=== PATIENT | female | born 1975 ===

== ENCOUNTER 2020-03-03 12:45 | Outpatient (REF) | payer OTHER, SELFPAY | END 2020-03-03 12:46 | disposition home or self-care (01) | LOC: HO.WFDLDS 12:45 | PROVIDERS: Visit Provider Internal Medicine | DX: Z20.828 Contact with and (suspected) exposure to other viral communicable diseases (principal) | CPT/HCPCS: 87635 ==

== ENCOUNTER 2020-05-02 07:37 | Outpatient (REF) | payer OTHER, SELFPAY ==
[2020-05-02 09:40] LABS: SARS COV2 IgG Negative (Negative)
== END 2020-05-02 07:38 | disposition home or self-care (01) ==
LOC: HO.LAB 07:37
PROVIDERS: PCP Family Medicine; Visit Provider Family Medicine
DX: Z20.828 Contact with and (suspected) exposure to other viral communicable diseases (principal)
CPT/HCPCS: 86769

== ENCOUNTER 2020-05-29 09:51 | Outpatient (REF) | payer OTHER, SELFPAY ==
--- NOTE | 2020-05-29 09:59 | MM_ITS ---
EXAMINATION: MM DIAGNOSTIC DIGITAL BREAST TOMOSYNTHESIS, BILATERAL US DIAGNOSTIC ULTRASOUND BREAST, RIGHT CLINICAL INFORMATION: 45-year-old with pea-sized palpable finding noted upper outer quadrant mid depth. Pain. Due for yearly. Patient notes prior history benign left breast biopsy approximately 20 years ago. The lifetime risk of breast cancer based on the Tyrer-Cuzick Model is 11%. COMPARISON: Mammography: 09/18/2018, 09/06/2017, 07/25/2016 TECHNIQUE: Digital breast tomosynthesis is performed in both the craniocaudal and mediolateral oblique views along with computer-aided detection (CAD). Synthesized 2D images are generated from the tomosynthesis. Additional views are obtained: Left MLO, magnification left CC x2, magnification left ML, magnification right CC, magnification right LM. Technologist notes right LM is inadvertently labeled as ML. Ultrasound right breast is targeted to the area of clinical concern upper outer quadrant. Patient is able to point to the area of interest at time of imaging. Grayscale imaging and color Doppler are performed without and with harmonics. FINDINGS: Mammography: The breasts are heterogeneously dense, which may obscure small masses (ACR BI-RADS breast composition Category c). Neither breast shows interval mass or architectural abnormality. There is no mammographic correlate for patient's palpable concern upper outer right breast. The axilla and skin contours are unremarkable. Additional magnification views right breast demonstrate new numerous grouped calcifications upper inner quadrant mid depth, over 10 in number. Stereotactic sampling is recommended. Additional magnification views left breast demonstrate new round calcifications retroareolar and lower inner breast, similar in appearance and round, grouped at least 8 in number representing change from prior studies. Stereotactic sampling 1 location is recommended. If benign remaining calcifications on left may be followed with mammography. Ultrasound: Targeted right breast ultrasound demonstrates no cystic or solid mass or focal duct ectasia or architectural abnormality. No skin thickening or edema tracking in soft tissue planes. Management: Results are discussed with the patient at time of visit. Bilateral stereotactic biopsy for calcifications is recommended. There is no mammographic or ultrasound correlate for patient's palpable concern upper outer right breast. Palpable area should be managed based on the clinical impression. If clinically indicated, further evaluation may be considered with surgical consult. Decision to proceed with biopsy of palpable area should be based on clinical grounds and degree of clinical concern. Results and recommendation called to medical assistant cardiology (Maggy) for Dr. Acosta on 05/29/2020. MM/MM tomosynthesis diagnostic BI IMPRESSION: 1. Right: New grouped calcifications upper inner quadrant. 2. Left: New/increased calcifications lower inner quadrant. 3. No imaging correlate for palpable concern upper outer right breast. ASSESSMENT: BI-RADS 4: Suspicious RECOMMENDATION: 1. Bilateral stereotactic biopsy, right upper inner quadrant and left lower inner quadrant. 2. Palpable area should be managed based on the clinical impression. If clinically indicated, further evaluation may be considered with surgical consult. Decision to proceed with biopsy of palpable area should be based on clinical grounds and degree of clinical concern. This patient's information was entered into a reminder system with a target due date for their next mammogram.
== END 2020-05-29 09:52 | disposition home or self-care (01) ==
LOC: HO.MAMMO 09:51
PROVIDERS: Visit Provider Family Medicine
DX: N64.4 Mastodynia (principal); N63.0 Unspecified lump in unspecified breast
CPT/HCPCS: 76642; 77062; 77066

== ENCOUNTER 2020-06-07 09:52 | Outpatient (REF) | payer OTHER, SELFPAY ==
--- NOTE | 2020-06-07 09:57 | MM_ITS ---
EXAMINATION: STEREOTACTIC TOMOSYNTHESIS-GUIDED VACUUM-ASSISTED BREAST BIOPSY, RIGHT SPECIMEN RADIOGRAPH, RIGHT POST PROCEDURE DIGITAL MAMMOGRAM, RIGHT CLINICAL INFORMATION: Indeterminate grouping of calcifications superior inner aspect of the right breast.. COMPARISON: May 29, 2020 and September 06, 2017. TECHNIQUE/PROCEDURE: Informed consent was obtained from the patient after discussion of the benefits, risks, and alternatives to biopsy today. Patient appeared to understand. Gave opportunity for questions. Patient signed consent form. BIOPSY TABLE: [employer] Affirm Prone Biopsy System. LESION: Grouping of calcifications superior medial aspect of the right breast.. LOCAL ANESTHESIA: 10 mL 1% lidocaine; 10 mL 1% lidocaine with epinephrine. DERMATOTOMY: Single skin tessie dermatotomy performed. NEEDLE: LIQUITY Eviva 9-gauge vacuum assisted core biopsy device. APPROACH: Superior. TARGETING: Digital breast tomosynthesis used for targeting. CORES: 12. CLIP: LIQUITY SecurMark Barrel-shaped marker. SPECIMEN RADIOGRAPH: Specimen radiograph is taken in separate room using digital mammography. The index calcifications are in the excised cores. POST PROCEDURE UNILATERAL DIGITAL MAMMOGRAM: The post biopsy mammogram is performed in separate room using separate digital mammography equipment from the biopsy procedure. 2 views are obtained. The breasts are heterogeneously dense, which may obscure small masses (breast composition category: c). The clip marker is in position. The calcifications are markedly decreased at the biopsy site. No gross hematoma. The patient tolerated the procedure well. No immediate complications. Home instructions reviewed with the patient. Final pathology results are pending. MM/MM stereotactic biopsy RT IMPRESSION: 1. Digital tomosynthesis-guided core biopsy right breast with clip placement. 2. Specimen radiograph taken and post procedure mammogram. There is satisfactory positioning of the biopsy clip. 3. Final pathology results pending. An addendum report will be issued.
--- NOTE | 2020-06-07 09:57 | MM_ITS ---
EXAMINATION: STEREOTACTIC TOMOSYNTHESIS-GUIDED VACUUM-ASSISTED BREAST BIOPSY, LEFT SPECIMEN RADIOGRAPH, LEFT POST PROCEDURE DIGITAL MAMMOGRAM, LEFT CLINICAL INFORMATION: Indeterminate left breast calcifications. COMPARISON: May 29, 2020 and studies dating back to March 11, 2012. TECHNIQUE/PROCEDURE: Informed consent was obtained from the patient after discussion of the benefits, risks, and alternatives to biopsy today. Patient appeared to understand. Gave opportunity for questions. Patient signed consent form. BIOPSY TABLE: [employer] Affirm Prone Biopsy System. LESION: Indeterminate calcifications. LOCAL ANESTHESIA: 10 mL 1% lidocaine; 20 mL 1% lidocaine with epinephrine. DERMATOTOMY: Single skin tessie dermatotomy performed. NEEDLE: [employer] Eviva 9-gauge vacuum assisted core biopsy device. APPROACH: Medial. TARGETIN-D. CORES: 12. CLIP: [employer] SecurMark Cylinder-shaped marker. SPECIMEN RADIOGRAPH: Specimen radiograph is taken in separate room using digital mammography. The index calcifications are in the excised cores. POST PROCEDURE UNILATERAL DIGITAL MAMMOGRAM: The post biopsy mammogram is performed in separate room using separate digital mammography equipment from the biopsy procedure. Craniocaudal and 90 degree mediolateral views are obtained. The breasts are heterogeneously dense, which may obscure small masses (breast composition category: c). The clip marker is in position. The calcifications are markedly decreased at the biopsy site. No gross hematoma. The patient tolerated the procedure well. No immediate complications. Home instructions reviewed with the patient. Final pathology results are pending. MM/MM stereotactic biopsy LT IMPRESSION: 1. Digital tomosynthesis-guided core biopsy left breast with clip placement. 2. Specimen radiograph taken and post procedure mammogram. There is satisfactory positioning of the biopsy clip. 3. Final pathology results pending. An addendum report will be issued.
== END 2020-06-07 09:53 | disposition home or self-care (01) ==
LOC: HO.MAMMO 09:52
PROVIDERS: Visit Provider Surgery
DX: R92.8 Other abnormal and inconclusive findings on diagnostic imaging of breast (principal); N63.10 Unspecified lump in the right breast, unspecified quadrant; R92.1 Mammographic calcification found on diagnostic imaging of breast; Z79.899 Other long term (current) drug therapy
CPT/HCPCS: 19081; 88305; 88341; 88342; 88360; A4648

== ENCOUNTER → 2020-06-14 13:20 | Outpatient (BNVA) | payer OTHER, SELFPAY | PROVIDERS: PCP Family Medicine; Visit Provider Surgery | DX: R92.8 Other abnormal and inconclusive findings on diagnostic imaging of breast (principal) ==

== ENCOUNTER 2021-01-16 10:14 | Outpatient (REF) | payer OTHER, SELFPAY ==
[2021-01-16 13:36] LABS: MANUAL DIFF FLAG NO
[2021-01-16 13:46] LABS: Basophils Percent Auto 0.6 % (0-2); Eosinophils Absolute Auto 0.1 X10*3/uL (0.0-0.4); Eosinophils Percent Auto 1.5 % (0-4); Hematocrit 37.7 % (37-47); Imm Gran Abs Auto 0.01 X10*3/uL (0.00-0.03); Imm Gran Pct Auto 0.2 % (0.0-0.4); Lymphocytes Percent Auto 21.1 % (20-40); Mean Corpuscular HGB Conc 31.8 g/dl (31.0-35.0); Mean Corpuscular Hemoglobin 29.2 pg (27.0-33.0); Mean Corpuscular Volume 91.7 fL (80-98); Mean Platelet Volume 11.7 fL (9.4-12.3); Monocytes Absolute Auto 0.6 X10*3/uL (0.1-1.2); Monocytes Percent Auto 12.8 % (2-11); Neutrophils Percent Auto 63.8 % (45-73); Platelet Count 211 X10*3/uL (160-400); Red Blood Count 4.11 X10*6/uL (4.20-5.50); Red Cell Distribution Width 13.7 % (11.0-16.0); White Blood Count 4.8 X10*3/uL (4.8-10.8)
[2021-01-16 14:26] LABS: Alanine Aminotransferase 26 U/L (0-31); Albumin Level 4.4 g/dL (3.5-5.0); Alkaline Phosphatase 90 U/L (39-117); Anion Gap 11 (12-20); Aspartate Amino Transferase 24 U/L (5-31); Bilirubin Total 0.5 mg/dL (0.0-1.0); Blood Urea Nitrogen 12 mg/dL (9-16); Calcium 9.4 mg/dL (8.4-10.2); Carbon Dioxide 27 mmol/L (22-29); Chloride 106 mmol/L (96-108); Estimated Glomerular Filt Rate > 60; Glucose Fasting 76 mg/dL (60-99); Sodium 140 mmol/L (135-145); Total Protein 6.9 g/dL (6.5-8.0)
[2021-01-16 14:36] LABS: TSH reflex Free T4 0.71 uIU/mL (0.32-4.0)
== END 2021-01-16 10:15 | disposition home or self-care (01) ==
LOC: HO.WFDLDS 10:14
PROVIDERS: Visit Provider Family Medicine
DX: Z00.00 Encounter for general adult medical examination without abnormal findings (principal); R55 Syncope and collapse
CPT/HCPCS: 36415; 80053; 84443; 85025

== ENCOUNTER 2021-02-07 14:04 | Outpatient (REF) | payer OTHER, SELFPAY | END 2021-02-07 14:05 | disposition home or self-care (01) | LOC: HO.LAB 14:04 | PROVIDERS: PCP Family Medicine; Visit Provider Internal Medicine | DX: Z20.822 Contact with and (suspected) exposure to COVID-19 (principal) | CPT/HCPCS: C9803; U0003; U0005 ==

== ENCOUNTER 2021-04-11 15:37 | Outpatient (REF) | payer OTHER, SELFPAY ==
--- NOTE | ~2021-04-11 | XR_ITS ---
EXAMINATION: XR LUMBOSACRAL SPINE CLINICAL INFORMATION: Back pain COMPARISON: Previous lumbar spine x-ray March 2016 and MRI December 2016 TECHNIQUE: Three views of the lumbosacral spine. FINDINGS: Bone alignment is normal. No fracture or dislocation is seen. Disc spaces are normal. There is facet arthritis at L5-S1. Paraspinal soft tissues are unremarkable. XR/XR lumbar spine 2-3V IMPRESSION: Mild facet arthritis L5-S1.
== END 2021-04-11 15:38 | disposition home or self-care (01) ==
LOC: HO.XRAY 15:37
PROVIDERS: PCP Family Medicine; Visit Provider Family Medicine
DX: M54.9 Dorsalgia, unspecified (principal)
CPT/HCPCS: 72100

== ENCOUNTER 2021-05-14 13:38 | Outpatient (REF) | payer OTHER, SELFPAY ==
[2021-05-14 20:05] LABS: Influenza A PCR NEGATIVE (Negative); Influenza B PCR NEGATIVE (Negative); Resp Syncy Virus RNA Qual PCR NEGATIVE (Negative); SARS COV2 PCR INHOUSE NEGATIVE (Negative)
== END 2021-05-14 13:39 | disposition home or self-care (01) ==
LOC: HO.LAB 13:38
PROVIDERS: Visit Provider Family Medicine
DX: Z20.822 Contact with and (suspected) exposure to COVID-19 (principal); B34.9 Viral infection, unspecified
CPT/HCPCS: 0241U

== ENCOUNTER 2021-05-16 08:03 | Outpatient (REF) | payer OTHER, SELFPAY | END 2021-05-16 08:04 | disposition home or self-care (01) | LOC: HO.HMGCLDS 08:03 | PROVIDERS: Visit Provider Internal Medicine | DX: Z20.822 Contact with and (suspected) exposure to COVID-19 (principal) | CPT/HCPCS: C9803; U0003; U0005 ==

== ENCOUNTER 2021-06-22 06:26 | Outpatient (REF) | payer OTHER, SELFPAY ==
--- NOTE | ~2021-06-22 | XR_ITS ---
EXAMINATION: XR CHEST CLINICAL INFORMATION: Chest pain. COMPARISON: Prior chest June 2017. TECHNIQUE: 2 views of the chest were obtained. FINDINGS: No acute significant abnormality is noted involving the heart, lungs, mediastinum, bony thorax or soft tissues. Surgical clips overlie the anterior chest wall on the right and left which is new compared to prior. XR/XR chest 2V IMPRESSION: No acute disease.
[2021-06-22 06:39] LABS: MANUAL DIFF FLAG NO
[2021-06-22 07:33] LABS: Basophils Percent Auto 0.5 % (0-2); Eosinophils Absolute Auto 0.1 X10*3/uL (0.0-0.4); Eosinophils Percent Auto 1.8 % (0-4); Hematocrit 38.1 % (37.0-47.0); Hemoglobin 12.4 g/dl (12.0-16.0); Imm Gran Abs Auto 0.01 X10*3/uL (0.00-0.03); Imm Gran Pct Auto 0.3 % (0.0-0.4); Lymphocytes Absolute Auto 1.1 X10*3/uL (1.2-4.9); Lymphocytes Percent Auto 28.6 % (20-40); Mean Corpuscular HGB Conc 32.5 g/dl (31.0-35.0); Mean Corpuscular Hemoglobin 29.7 pg (27.0-33.0); Mean Corpuscular Volume 91.1 fL (80.0-98.0); Mean Platelet Volume 11.2 fL (9.4-12.3); Monocytes Absolute Auto 0.5 X10*3/uL (0.1-1.2); Neutrophils Absolute Auto 2.1 x10*3/uL (2.0-8.3); Neutrophils Percent Auto 55.8 % (45-73); Platelet Count 212 X10*3/uL (160-400); Red Blood Count 4.18 X10*6/uL (4.20-5.50); Red Cell Distribution Width 13.8 % (11.0-16.0); White Blood Count 3.8 X10*3/uL (4.8-10.8)
[2021-06-22 07:59] LABS: Anion Gap 12 (12-20); Blood Urea Nitrogen 19 mg/dL (9-16); Calcium 9.6 mg/dL (8.4-10.2); Carbon Dioxide 27 mmol/L (22-29); Chloride 106 mmol/L (96-108); Estimated Glomerular Filt Rate > 60; Glucose Random 84 mg/dL (60-115); Potassium 4.2 mmol/L (3.3-5.1); Sodium 141 mmol/L (135-145)
== END 2021-06-22 06:27 | disposition home or self-care (01) ==
LOC: HO.LAB 06:26
PROVIDERS: PCP Family Medicine; Visit Provider Family Medicine
DX: Z00.00 Encounter for general adult medical examination without abnormal findings (principal); R07.9 Chest pain, unspecified; R42 Dizziness and giddiness
CPT/HCPCS: 36415; 71046; 80048; 85025

== ENCOUNTER 2022-01-08 06:25 | Outpatient (REF) | payer OTHER, SELFPAY ==
[2022-01-08 07:58] LABS: Alkaline Phosphatase 104 U/L (39-117); Amylase 74 U/L (28-100); Estimated Glomerular Filt Rate > 60; Lipase 48 U/L (8-78)
== END 2022-01-08 06:26 | disposition home or self-care (01) ==
LOC: HO.LAB 06:25
PROVIDERS: PCP Family Medicine; Visit Provider Nurse Practitioner Family
DX: R10.11 Right upper quadrant pain (principal)
CPT/HCPCS: 36415; 82150; 82565; 83690; 84075

== ENCOUNTER 2022-01-08 07:29 | Outpatient (REF) | payer OTHER, SELFPAY | END 2022-01-08 07:30 | disposition home or self-care (01) | LOC: HO.LNP 07:29 | PROVIDERS: Visit Provider Nurse Practitioner Family | DX: R10.11 Right upper quadrant pain (principal) | CPT/HCPCS: 87338 ==

== ENCOUNTER 2022-01-18 14:54 | Outpatient (REF) | payer OTHER, SELFPAY ==
--- NOTE | ~2022-01-18 | CT_ITS ---
EXAMINATION: CT ABDOMEN WITH CONTRAST CLINICAL INFORMATION: Right upper quadrant pain. COMPARISON: September 05, 2009 and March 10, 2008 TECHNIQUE: Contiguous axial thin section helical images of the abdomen were performed following the administration of oral contrast and 85 mL of Omnipaque 350 intravenous contrast. The data set was reformatted in the coronal and sagittal planes and reviewed on an independent workstation. This CT examination was performed using dose optimization techniques as appropriate, variously including the following: *Automated exposure control *Adjustment of mA and/or kV according to patient size (this includes techniques or standardized protocols for targeted exams where dose is matched to indication/reason for exam; i.e. extremities or head) *Use of iterative reconstruction technique DLP: 199 mGy-cm FINDINGS: LUNG BASES: The lung bases appear clear, with no evidence of inflammation or nodules. LIVER, GALLBLADDER, AND BILIARY TREE: No significant change in benign, subcentimeter elements 2 and 3 hepatic cysts or meningioma (images 14 and 22, series 3). The liver otherwise appears unremarkable in size, shape, and attenuation. No focal hepatic lesion or biliary ductal dilatation is appreciated. Unremarkable appearance of the gallbladder. PANCREAS: Unremarkable SPLEEN: Unremarkable ADRENAL GLANDS: Unremarkable KIDNEYS AND URETERS: The kidneys appear unremarkable in size, shape, and attenuation. 4 mm or less, nonobstructing, bilateral renal collecting system stones (image 30, series 3 on the right; image 25 on the left). GASTROINTESTINAL TRACT: The visualized small and large bowel appear unremarkable. ABDOMINAL WALL: No significant hernia is appreciated. LYMPH NODES: No evidence of adenopathy by size criteria. VASCULAR: Unremarkable OSSEOUS STRUCTURES: Unremarkable CT/CT abdomen w IV con IMPRESSION: No acute finding.
[2022-01-18] MEDS: iohexoL 350 MG/ML 100 ML INFUS..BTL IV (15:54)
== END 2022-01-18 14:55 | disposition home or self-care (01) ==
LOC: HO.CT 14:54
PROVIDERS: PCP Family Medicine; Visit Provider Nurse Practitioner Family
DX: R10.11 Right upper quadrant pain (principal)
CPT/HCPCS: 74160; Q9967

== ENCOUNTER 2022-02-24 20:14 | Emergency (ER) | payer OTHER, SELFPAY ==
--- NOTE | ~2022-02-24 | CT_ITS ---
EXAMINATION: CT ABDOMEN AND PELVIS WITHOUT CONTRAST CLINICAL INFORMATION: Right flank pain COMPARISON: 01/18/2022 TECHNIQUE: Multidetector volumetric imaging was performed from the superior aspect of the liver through the pubic symphysis. Sagittal and coronal reformatted images were obtained on the technologist's workstation. This CT examination was performed using dose optimization techniques as appropriate, variously including the following: *Automated exposure control *Adjustment of mA and/or kV according to patient size (this includes techniques or standardized protocols for targeted exams where dose is matched to indication/reason for exam; i.e. extremities or head) *Use of iterative reconstruction technique DLP: 524 mGy-cm FINDINGS: LUNG BASES: The visualized lung bases are unremarkable. LIVER, GALLBLADDER, AND BILIARY TREE: The liver is normal in size, shape, and attenuation. No focal hepatic lesion or biliary ductal dilatation is identified. The gallbladder is unremarkable with no evidence of radiopaque gallstones, gallbladder wall thickening, or obvious pericholecystic inflammatory changes. PANCREAS: Unremarkable. SPLEEN: Unremarkable. ADRENAL GLANDS: Unremarkable. KIDNEYS AND URETERS: No hydronephrosis or obstructing calculus bilaterally. There are multiple scattered bilateral renal calculi measuring up to 3 mm. BLADDER: Nearly empty and not adequately evaluated. GASTROINTESTINAL TRACT: No evidence of bowel obstruction or significant wall thickening. The appendix is unremarkable. No free fluid or free air is seen. ABDOMINAL WALL: No significant hernia is appreciated. LYMPH NODES: Normal. VASCULAR: Unremarkable. PELVIC VISCERA: Status post hysterectomy. OSSEOUS STRUCTURES: Unremarkable. CT/CT abdomen pelvis wo IV con IMPRESSION: No hydronephrosis or obstructing calculus. Multiple scattered bilateral renal calculi.
[2022-02-24 21:16] VITALS: BP 135/74; PULSE 84; RESP 14; TEMP 36.4; O2SAT 95; BMI 25.2
[2022-02-24 22:17] LABS: MANUAL DIFF FLAG NO
[2022-02-24 22:21] LABS: Basophils Percent Auto 0.6 % (0-2); Eosinophils Absolute Auto 0.1 X10*3/uL (0.0-0.4); Eosinophils Percent Auto 2.3 % (0-4); Hematocrit 36.6 % (37.0-47.0); Hemoglobin 11.9 g/dl (12.0-16.0); Imm Gran Abs Auto 0.02 X10*3/uL (0.00-0.03); Imm Gran Pct Auto 0.4 % (0.0-0.4); Lymphocytes Absolute Auto 1.7 X10*3/uL (1.2-4.9); Lymphocytes Percent Auto 32.2 % (20-40); Mean Corpuscular HGB Conc 32.5 g/dl (31.0-35.0); Mean Corpuscular Hemoglobin 29.2 pg (27.0-33.0); Mean Corpuscular Volume 89.9 fL (80.0-98.0); Mean Platelet Volume 9.7 fL (9.4-12.3); Monocytes Absolute Auto 0.7 X10*3/uL (0.1-1.2); Monocytes Percent Auto 13.9 % (2-11); Neutrophils Absolute Auto 2.7 x10*3/uL (2.0-8.3); Neutrophils Percent Auto 50.6 % (45-73); Platelet Count 187 X10*3/uL (160-400); Red Blood Count 4.07 X10*6/uL (4.20-5.50); Red Cell Distribution Width 13.5 % (11.0-16.0); White Blood Count 5.3 X10*3/uL (4.8-10.8)
[2022-02-24 22:39] LABS: Alanine Aminotransferase 22 U/L (0-31); Albumin Level 4.3 g/dL (3.5-5.0); Alkaline Phosphatase 118 U/L (39-117); Anion Gap 14 (12-20); Aspartate Amino Transferase 20 U/L (5-31); Bilirubin Total 0.2 mg/dL (0.0-1.0); Blood Urea Nitrogen 18 mg/dL (9-16); Calcium 9.4 mg/dL (8.4-10.2); Carbon Dioxide 24 mmol/L (22-29); Chloride 108 mmol/L (96-108); Creatinine Clr Calc Pharmacy 93.2; Estimated Glomerular Filt Rate > 60; Glucose Random 82 mg/dL (60-115); Lipase 50 U/L (8-78); Potassium 3.8 mmol/L (3.3-5.1); Sodium 142 mmol/L (135-145); Total Protein 6.9 g/dL (6.5-8.0)
[2022-02-25 02:51] VITALS: BP 133/82; PULSE 77; RESP 22; O2SAT 100
--- OUTSIDE RECORDS SUMMARY | 2022-02-25 02:54 | XMS_ITS ---
:1975 Author Name DaveBrody quick Care Team Providers Name Role Phone Brody Acosta Unavailable Unavailable PROBLEMS Type Condition ICD9-CM Code [id number] Code Onset Condition SNO MED Code Dates Status Problem Hallux valgus M20.11 Active 751252 01 (acquired), right foot Problem Hallux valgus M20.12 Active 787092 01 (acquired), left foot Problem MS (multiple G35 Active 5801634 7 sclerosis) ALLERGIES Substance Reaction Event Type Date Status Latex rash Non Drug Allergy Jan, Active Tramadol HCl vomiting Drug Allergy Jan, Active ENCOUNTERS [facility] Date [facility], [address], 2021 [place] [address] [facility] [address], [place] [address] [facility] [address] [facility] [address], [place] [address] [facility] [address] [address] [address], [place] [address] [facility], [place] [address] [facility] [address] May, [place] [address] Jan, [place] lux valgus [place], [place] (acquired), [place]f [place] [address] M20.12 ; Hallux valgus (acquired), righ t foot M20.11 ; Pain in left foot M79.672 ; P ain in right foot M79.6 71 ; Ganglion, left a nkle and foot M67.472 and MS (multiple sclerosis) G35 IMMUNIZATIONS No Known Immunizations SOCIAL HISTORY Qualifiers Date Never Smoker REASON FOR REFERRAL FUNCTIONAL STATUS PLAN OF CARE Activity Details Pending Test X ray : Foot, left 3V Pending Test X ray : Foot, right 3V Future/Pending Procedure - Ganglion Cyst Injecti on/Aspiration VITAL SIGNS Height 55 in 2019-02-15 Weight 140 lbs 2019-02-15 BMI 32.54 kg/m2 2019-02-15 Blood pressure systolic 144 mm Hg 2019-02-15 Blood pressure diastolic 87 mm Hg 2019-02-15 MEDICATIONS Medication Instructions Dosage Frequency Start End Duration Statu s Date Date predniSONE 20 Orally Once a 1 tablet 24h 30 day(s) N ot-Takin MG day g Ibuprofen 800 Orally Three 1 tablet 8h Acti ve MG times a day with food or milk as needed PROCEDURES Procedure Date Ordered Result Body Site ASPIRATE/INJ GANGLION CYST Feb 15, 2019 INJ BETAMETHSN ACTAT&SOD PHOSPH-3MG Feb 15, 2019 X-RAY EXAM OF RIGHT FOOT 3V Feb 15, 2019 X-RAY EXAM OF LEFT FOOT 3V Feb 15, 2019 RESULTS No Results REASON FOR VISIT Insurance Providers [facility] Member Patient Patient Patient Patient Patient Subscriber Subscriber Subscriber Group Insurance Plan Plan Plan Plan ID Relationship Address Phone Name Date of ID Name Date of No Type Insurance Insurance Insurance Coverage to Subscriber Address Phone Name Dates [facility] [phone] [facility] [place] [id number] [place] [address] [facility] [address] MEDICAL (GENERAL) HISTORY Type Description Date Medical History Headaches/Migraines Medical History Lyme disease Medical History Multiple sclerosis Medical History Numbness Medical History Chicken pox Medical History Optic neuritis Surgical History tubal ligation Surgical History hysterectomy
--- OUTSIDE RECORDS SUMMARY | 2022-02-25 02:54 | XMS_ITS | Continuity of Care Document ---
:1975 Author Organization [facility] Address [address] [place] [address], 3rd Floor, [address] [place] [id number]- Care Team Providers Name Role Phone Dave LARA, Brody Maldonado Primary Care Physician [place] [facility] [place]20 [facility] [address] [place] [address], 3rd [facility], [address] [place] [address]- Allergies, Adverse Reactions, Alerts Substance Reaction Severity Status [place] Nausea, Abdominal discomfort Act tiffanie Latex rash Active red dots traMADol Dizziness Active N+V - Nausea and vomiting Immunizations Given and Recorded Vaccine Date Status Refusal Reason pneumococcal 23-valent vaccine 12/19/13 Given Medications gabapentin 100 mg oral capsule 100 mg, 1, capsule, By Mouth, 2 times a day, # 60 capsule, Refills 2, Tot. Refills 2, Maintenance, 12/31/19 14:18:00 EDT, Route to Pharmacy Electronically, [facility]/pharmacy #[id number], 165, cm, 07/29/19 8:20:00EDT, Height, 66.8, kg, 03/16/19 16:36:00 EDT, Dry... Start Date: 12/31/19 Status: Orderedibuprofen 600 mg oral tablet See Instructions, PRN, required and as before, Refills 0, Maintenance, Pain , Mild, 08/16/17 11:36:53 EDT, Instructions Replace Required Details Start Date: 08/16/17 Status: Orderedmeclizine 12.5 mg oral tablet 1 tablet = 12.5 mg, By Mouth, 3 times a day, PRN for dizziness, # 30 tablet, 1 Refills, Maintenance,01/19/20 10:27:00 EDT, Tablet, [facility]/pharmacy #[id number], 165, cm, 07/29/19 8:20:00 EDT, Height, 66.8, kg, 03/16/19 16:36:00 EDT, Dry Weight Start Date: 01/19/20 Status: OrderedOcrevus 600 mg, IV Infusion, Every 6 months, Maintenance, 03/25/20 8:09:00 EST Start Date: 03/25/20 Status: OrderedVitamin D 75374 iu oral capsule 50,000 International_Units, 1, capsule, By Mouth, Every week, # 4 capsule, Refills 5, Tot. Refills 5, Maintenance, 12/17/19 15:39:00 EDT, Route to Pharmacy Electronically, [facility]/pharmacy #[id number], 165, cm, 07/29/19 8:20:00 EDT, Height, 66.8, kg, 03/16/19 1... Start Date: 12/17/19 Status: Ordered Problem List Condition Effective Dates Status Health Status Informant Abdominal pain, epigastric(Confirmed) Active Abdominal pain, generalized(Confirmed) Active Change in stool habits(Confirmed) Active Colicky abdominal pain(Confirmed) Active Diagnostic colonoscopy(Confirmed) Active Diarrhea(Confirmed) Active History of kidney stones(Confirmed) Active Migraine(Confirmed) Active Multiple Sclerosis(Confirmed) Active Nausea(Confirmed) Active Optic Neuritis(Confirmed) Active Social History Social History Type Response Smoking Status Never smoker; Tobacco user i n household: No entered on: 12/15/13 Sex
--- OUTSIDE RECORDS SUMMARY | 2022-02-25 02:54 | XMS_ITS | Continuity of Care Document ---
:1975 Author Organization [facility] Address Unavailable , Care Team Providers Name Role Phone Dave LARA, Brody Maldonado Primary Care Physician [place] [facility] [place] Date(s): 02/21/21 - 03/23/21 [facility] Allergies, Adverse Reactions, Alerts Substance Reaction Severity Status [place] Nausea, Abdominal discomfort Act tiffanie Latex rash Active red dots traMADol Dizziness Active N+V - Nausea and vomiting Immunizations Given and Recorded Vaccine Date Status Refusal Reason pneumococcal 23-valent vaccine 12/19/13 Given Medications Acetaminophen 0 Refills, Maintenance, 07/31/20 15:21:00 EDT, Partial fill upon patient request if the prescriptionis for a schedule II opioid drug. Start Date: 07/31/20 Status: Orderedibuprofen 600 mg oral tablet See Instructions, PRN, required and as before, Refills 0, Maintenance, Pain , Mild, 08/16/17 11:36:53 EDT, Instructions Replace Required Details Start Date: 08/16/17 Status: Orderedtamoxifen 10 mg oral tablet See Instructions, 1/2tab in AM [id number];then1/2tabBID x 7 d;then 1 tab in AM and!/2 in [id number]; then 1 tab BID going forward, # 180 tablet, Refills 3, Tot. Refills 3, Maintenance, 08/23/20 10:20:00EDT, Instructions Replace Required Details, Route... Start Date: 08/23/20 Status: OrderedVitamin D 34224 iu oral capsule 50,000 International_[employer]its, 1, capsule, By Mouth, Every week, # 4 capsule, Refills 5, Tot. Refills 5, Maintenance, 12/17/19 15:39:00 EDT, Route to Pharmacy Electronically, [facility]/pharmacy #[id number], 165, cm, 07/29/19 8:20:00 EDT, Height, 66.8, kg, 03/16/19 1... Start Date: 12/17/19 Status: Ordered Problem List Condition Effective Dates Status Health Status Informant Abdominal pain, epigastric(Confirmed) Active Abdominal pain, generalized(Confirmed) Active Change in stool habits(Confirmed) Active Colicky abdominal pain(Confirmed) Active Diagnostic colonoscopy(Confirmed) Active Diarrhea(Confirmed) Active History of kidney stones(Confirmed) Active Personal history of breast Active cancer(Confirmed) S/P partial mastectomy(Confirmed) Active Migraine(Confirmed) Active Multiple Sclerosis(Confirmed) Active Nausea(Confirmed) Active Postoperative breast Active asymmetry(Confirmed) Optic Neuritis(Confirmed) Active Social History Social History Type Response Smoking Status Never smoker; Tobacco user i n household: No entered on: 12/15/13 Sex
--- OUTSIDE RECORDS SUMMARY | 2022-02-25 02:54 | XMS_ITS | Continuity of Care Document ---
:1975 Author Organization [facility] Address [address] [place] [address], 3rd Floor, [address] [place] [id number]- Care Team Providers Name Role Phone Gemma Arrieta Primary Care Physician Encounter [facility] [place] Date(s): 12/15/19 - 01/14/20 [facility] [address] [place] [address], 3rd Floor, [address] [place] [id number]- [facility] Allergies, Adverse Reactions, Alerts Substance Reaction Severity Status [place] Nausea, Abdominal discomfort Act tiffanie Latex rash [...] 14:18:00 EDT, Route to Pharmacy Electronically, [facility]/pharmacy #[id number], 165, cm, 07/29/19 8:20:00EDT, Height, 66.8, kg, 03/16/19 16:36:00 EDT, Dry... Start Date: 12/31/19 Status: Orderedibuprofen 600 mg oral tablet See Instructions, PRN, required and as before, Refills 0, Maintenance, Pain , Mild, 08/16/17 11:36:53 EDT, Instructions Replace Required Details Start Date: 08/16/17 Status: OrderedVitamin D 68160 iu oral capsule 50,000 International_Units, 1, capsule, By Mouth, Every week, # 4 capsule, Refills 5, Tot. Refills 5, Maintenance, 12/17/19 15:39:00 EDT, Route to Pharmacy Electronically, [facility]/pharmacy #[id number], 165, cm, 07/29/19 8:20:00 EDT, Height, [...]
--- OUTSIDE RECORDS SUMMARY | 2022-02-25 02:54 | XMS_ITS | Continuity of Care Document ---
:1975 Author Organization [facility] Address [address] [place] [address], 3[address] Floor, [address] [place] [id number]- Care Team Providers Name Role Phone Gemma Arrieta Primary Care Physician [place] [facility] [place]20 [facility] [address] [facility], 3rd Floor, [address] [place] [address]- [facility] Allergies, Adverse Reactions, Alerts Substance Reaction Severity Status [place] Nausea, Abdominal discomfort Act tiffanie Latex rash [...] 12/31/19 14:18:00 EDT, Route to Pharmacy Electronically, [facility]/pharmacy #[id number], 165, cm, 07/29/19 8:20:00EDT, Height, 66.8, kg, [...] tablet, 1 Refills, Maintenance,01/19/20 10:27:00 EDT, Tablet, [facility]/pharmacy #[id number], 165, cm, 07/29/19 8:20:00 EDT, Height, 66.8, kg, 03/16/19 16:36:00 EDT, Dry Weight Start Date: 01/19/20 Status: OrderedVitamin D 48332 iu oral capsule 50,000 International_[employer]its, 1, capsule, By Mouth, Every week, # 4 capsule, Refills 5, Tot. Refills 5, Maintenance, 12/17/19 15:39:00 EDT, Route to Pharmacy Electronically, [facility]/pharmacy #[id number], 165, cm, 07/29/19 8:20:00 EDT, [...]
--- OUTSIDE RECORDS SUMMARY | 2022-02-25 02:54 | XMS_ITS | Continuity of Care Document ---
:1975 Author Organization [facility] Address [address] [place] [address], 3rd Floor, [address] [place] [address]- Care Team Providers Name Role Phone Dave LARA, Brody Maldonado Primary Care Physician Encounter [facility] Date(s): 05/24/20 - 06/23/20 [facility] [address] [place] [address], 3rd [facility], [address] [place] [id number] Allergies, Adverse Reactions, Alerts Substance Reaction Severity Status [place] Nausea, Abdominal discomfort Act tiffanie Latex rash [...] 12/31/19 14:18:00 EDT, Route to Pharmacy Electronically, [facility]/pharmacy #[id number], 165, cm, 07/29/19 8:20:00EDT, Height, 66.8, kg, [...] tablet, 1 Refills, Maintenance,01/19/20 10:27:00 EDT, Tablet, [facility]/pharmacy #[id number], 165, cm, 07/29/19 8:20:00 EDT, Height, 66.8, kg, 03/16/19 16:36:00 EDT, Dry Weight Start Date: 01/19/20 Status: OrderedOcrevus 600 mg, IV Infusion, Every 6 months, Maintenance, 03/25/20 8:09:00 EST Start Date: 03/25/20 Status: OrderedVitamin D 87540 iu oral capsule 50,000 International_Units, 1, capsule, By Mouth, Every week, # 4 capsule, Refills 5, Tot. Refills 5, Maintenance, 12/17/19 15:39:00 EDT, Route to Pharmacy Electronically, [facility]/pharmacy #[id number], 165, cm, 07/29/19 8:20:00 EDT, [...]
--- OUTSIDE RECORDS SUMMARY | 2022-02-25 02:54 | XMS_ITS | Continuity of Care Document ---
:1975 Author Organization [facility] Address [address] [place] [address]- Care Team Providers Name Role Phone Genesis Shepherd MD, V Primary Care Physician Encounter [facility] Date(s): 02/06/22 - 02/13/22 [facility] [address] [place], [place] [address] Encounter Diagnosis Abdominal pain, epigastric (Discharge Diagnosis) - 02/06/22 History of Helicobacter infection (Discharge Diagnosis) - 02/06/22 Attending Physician: Genesis Shepherd MD, V Allergies, Adverse Reactions, Alerts Substance Reaction Severity Status [place] Nausea, Abdominal discomfort Act tiffanie traMADol Dizziness Active N+V - Nausea and vomiting Latex rash Active red dots Immunizations Given and Recorded Vaccine Date Status [...] Orderedtamoxifen 10 mg oral tablet See Instructions, TAKE INSTRUCTED BY YOUR PRESCRIBER, # 180 tablet, Refills 3, Tot. Refills 3, 10/05/21 10:22:00 EDT, Instructions Replace Required Details, Route to Pharmacy Electronically, [facility], 165.1, cm, 07/03/21 13:48:... Start Date: 10/05/21 Status: OrderedVitamin D 07529 iu oral capsule 50,000 International_Units, 1, capsule, By Mouth, Every week, # 4 capsule, Refills 5, Tot. Refills 5, Maintenance, 12/17/19 15:39:00 EDT, Route to Pharmacy Electronically, [facility]/pharmacy #[id number], 165, cm, 07/29/19 8:20:00 EDT, Height, 66.8, kg, 03/16/19 1... Start Date: 12/17/19 Status: OrderedVumerity 231 mg oral delayed release capsule 2 capsule = 462 mg, By Mouth, 2 times a day, do not take with high fat meal, # 120 capsule, 5 Refills, Maintenance, 12/31/21 12:52:00 EDT, CR Capsule, [facility], Partial fill upon patient request if the prescription is for a schedule II opioid drug., 16... Start Date: 12/31/21 Status: Ordered Problem List Condition Confirmation Course Effective Dates Status Health I nformant Status Abdominal pain, Confirmed Active epigastric Abdominal pain, Confirmed Active generalized Change in stool Confirmed Active habits Colicky abdominal Confirmed Active pain Diagnostic Confirmed Active colonoscopy Diarrhea Confirmed Active History of Confirmed Active Helicobacter infection History of kidney Confirmed Active stones Personal history of Confirmed Active breast cancer S/P partial Confirmed Active mastectomy Migraine Confirmed Active Multiple Sclerosis Confirmed Active Nausea Confirmed Active Postoperative breast Confirmed Active asymmetry Optic Neuritis Confirmed Active Diagnosis Diagnosis Type Effective Dates Health Clinical Infor [facility] Status Service Abdominal pain, Discharge 02/06/22 epigastric Diagnosis History of Discharge 02/06/22 Helicobacter Diagnosis infection Vital Signs Most recent to oldest [Reference Range]: 1 Height 165 cm (02/06/22 1:05 PM) Weight 69 kg (02/06/22 1:05 PM) Body Mass Index [18.5-24.99 kg/m2] 25.34 kg/m2 *H* (02/06/22 1:05 PM) Weight Obtained Via Patient/family stated (02/06/22 1:05 PM) Social History Social History Type Response Smoking Status Never smoker; Tobacco user i n household: No entered on: 12/15/13 Sex Patient Care team information PersonnelName: Genesis Shepherd MD, V Address: Address: [address] [place] [address]
--- OUTSIDE RECORDS SUMMARY | 2022-02-25 02:55 | XMS_ITS | Continuity of Care Document ---
:1975 Author Organization [facility] Address [address] [place] [address], 3rd Floor, [address] [place] [address]- Care Team Providers Name Role Phone Gemma Arrieta Primary Care Physician Encounter [facility] Date(s): 12/16/19 - 01/15/20 [facility] [address] [place] [address], 3rd [facility], [address] [place] [address] [facility] Allergies, Adverse Reactions, Alerts Substance Reaction Severity Status [place] Nausea, Abdominal discomfort Act tiffanie Latex rash [...] 12/31/19 14:18:00 EDT, Route to Pharmacy Electronically, [facility]/pharmacy #[id number], 165, cm, 07/29/19 8:20:00EDT, Height, 66.8, kg, 03/16/19 16:36:00 EDT, Dry... Start Date: 12/31/19 Status: Orderedibuprofen 600 mg oral tablet See Instructions, PRN, required and as before, Refills 0, Maintenance, Pain , Mild, 08/16/17 11:36:53 EDT, Instructions Replace Required Details Start Date: 08/16/17 Status: OrderedVitamin D 07445 iu oral capsule 50,000 International_Units, 1, capsule, By Mouth, Every week, # 4 capsule, Refills 5, Tot. Refills 5, Maintenance, 12/17/19 15:39:00 EDT, Route to Pharmacy Electronically, [facility]/pharmacy #[id number], 165, cm, 07/29/19 8:20:00 EDT, [...]
--- OUTSIDE RECORDS SUMMARY | 2022-02-25 02:55 | XMS_ITS | Continuity of Care Document ---
:1975 Author Organization [facility] Address [address] [place] [address]- Care Team Providers Name Role Phone Dave LARA, Brody Maldonado Primary Care Physician Encounter [facility] Date(s): 02/08/21 - 08/25/[address] [address]- Attending Physician: Lewis Winkler MD Admitting Physician: Lewis Winkler MD Allergies, Adverse Reactions, Alerts Substance Reaction Severity Status [place] Nausea, Abdominal discomfort Act tiffanie traMADol Dizziness [...] oral tablet See Instructions, 1/2tab in AM [id number];then1/2tabBID x 7 d;then 1 tab in AM and!/2 in XXv6slyc; then 1 tab BID going forward, # 180 tablet, Refills 3, Tot. Refills 3, Maintenance, 08/23/20 10:20:00EDT, Instructions Replace Required Details, Route... Start Date: 08/23/20 Status: OrderedVitamin D 05455 iu oral capsule 50,000 International_Units, 1, capsule, By Mouth, Every week, # 4 capsule, Refills 5, Tot. Refills 5, Maintenance, 12/17/19 15:39:00 EDT, Route to Pharmacy Electronically, [facility]/pharmacy #[id number], 165, cm, 07/29/19 8:20:00 EDT, Height, 66.8, kg, 03/16/19 1... Start Date: 12/17/19 Status: OrderedVumerity 231 mg oral delayed release capsule 1 capsule = 231 mg, By Mouth, 2 times a day, do not take with high fat meal, # 28 capsule, 0 Refills, Maintenance, 04/04/21 20:32:00 EST, CR Capsule, [facility], Partial fill upon patient request if the prescription is for a schedule... Start Date: 04/04/21 Stop Date: 04/18/21 Status: OrderedVumerity 231 mg oral delayed release capsule 2 capsule = 462 mg, By Mouth, 2 times a day, do not take with high fat meal, # 120 capsule, 5 Refills, Maintenance, 04/04/21 20:32:00 EST, CR Capsule, [facility], Partial fill upon patient request if the prescription is for a schedule... Start Date: 04/04/21 Status: Ordered Problem List Condition Effective Dates [...]
--- OUTSIDE RECORDS SUMMARY | 2022-02-25 02:55 | XMS_ITS | Continuity of Care Document ---
:1975 Author Organization [facility] [address] [place] [address]- Care Team Providers Name Role Phone Brody Acosta MD Primary Care Physician Encounter [facility] Date(s): 02/09/21 - 06/09/[address] [place] [id number] Attending Physician: Lewis Winkler MD Referring Physician: Brody Acosta MD Allergies, Adverse Reactions, Alerts Substance Reaction Severity Status [place] Nausea, Abdominal discomfort Act tiffanie traMADol Dizziness [...] oral tablet See Instructions, 1/2tab in AM [id number];then1/2tabBID x 7 d;then 1 tab in AM and!/2 in MXc2lhrd; then 1 tab BID going forward, # 180 tablet, Refills 3, Tot. Refills 3, Maintenance, 08/23/20 10:20:00EDT, Instructions Replace Required Details, Route... Start Date: 08/23/20 Status: OrderedVitamin D 42885 iu oral capsule 50,000 International_Units, 1, capsule, By Mouth, Every week, # 4 capsule, Refills 5, Tot. Refills 5, Maintenance, 12/17/19 15:39:00 EDT, Route to Pharmacy Electronically, [facility]/pharmacy #[id number], 165, cm, 07/29/19 8:20:00 EDT, Height, 66.8, kg, 03/16/19 1... Start Date: 12/17/19 Status: OrderedVumerity 231 mg oral delayed release capsule 1 capsule = 231 mg, By Mouth, 2 times a day, do not take with high fat meal, # 28 capsule, 0 Refills, Maintenance, 04/04/21 20:32:00 EST, CR Capsule, [facility], Partial fill upon patient request if the prescription is for a schedule... Start Date: 04/04/21 Stop Date: 04/18/21 Status: OrderedVumerity 231 mg oral delayed release capsule 2 capsule = 462 mg, By Mouth, 2 times a day, do not take with high fat meal, # 120 capsule, 5 Refills, Maintenance, 04/04/21 20:32:00 EST, CR Capsule, [facility], Partial fill upon patient request [...]
--- OUTSIDE RECORDS SUMMARY | 2022-02-25 02:55 | XMS_ITS | Continuity of Care Document ---
:1975 Author Organization [facility] [address] [place] [address]- Care Team Providers Name Role Phone Brody Acosta MD Primary Care Physician [place] [facility] 02/28/21 - 06/28/[address] [place] [address] Attending Physician: Cyndi Rosales NP Referring Physician: Brody Acosta MD Allergies, Adverse Reactions, Alerts Substance Reaction Severity Status [place] Nausea, Abdominal discomfort Act tiffanie Latex rash [...] oral tablet See Instructions, 1/2tab in AM [id number];then1/2tabBID x 7 d;then 1 tab in AM and!/2 in [id number]; then 1 tab BID going forward, # 180 tablet, Refills 3, Tot. Refills 3, Maintenance, 08/23/20 10:20:00EDT, Instructions Replace Required Details, Route... Start Date: 08/23/20 Status: OrderedVitamin D 48302 iu oral capsule 50,000 International_Units, 1, capsule, By Mouth, Every week, # 4 capsule, Refills 5, Tot. Refills 5, Maintenance, 12/17/19 15:39:00 EDT, Route to Pharmacy Electronically, [facility]/pharmacy #[id number], 165, cm, 07/29/19 8:20:00 EDT, Height, 66.8, kg, 03/16/19 1... Start Date: 12/17/19 Status: OrderedVumerity 231 mg oral delayed release capsule 1 capsule = 231 mg, By Mouth, 2 times a day, do not take with high fat meal, # 28 capsule, 0 Refills, Maintenance, 04/04/21 20:32:00 EST, CR Capsule, [facility], Partial fill upon patient request if the prescription is for a schedule... Start Date: 04/04/21 Stop Date: 04/18/21 Status: OrderedVumerity 231 mg oral delayed release capsule 2 capsule = 462 mg, By Mouth, 2 times a day, do not take with high fat meal, # 120 capsule, 5 Refills, Maintenance, 04/04/21 20:32:00 EST, CR Capsule, [facility], Partial fill upon patient request [...]
--- OUTSIDE RECORDS SUMMARY | 2022-02-25 02:55 | XMS_ITS | Continuity of Care Document ---
:[address] [facility] Address [address] [place] [address]- Care Team Providers Name Role Phone Genesis Shepherd MD, V Primary Care Physician Encounter [facility] [id number] Date(s): 01/24/22 - 02/23/22 [facility] [address] [place] [address]- Attending Physician: Muna Jarrett Admitting Physician: Muna Jarrett Referring Physician: AdmtrMuna Allergies, Adverse Reactions, Alerts Substance Reaction Severity Status [place] Nausea, Abdominal discomfort Act tiffanie Latex rash [...] 13:48:... Start Date: 10/05/21 Status: OrderedVitamin D 43945 iu oral capsule 50,000 International_Units, 1, capsule, [...] Confirmed Active asymmetry Optic Neuritis Confirmed Active Social History Social History Type Response Smoking Status Never smoker; Tobacco user i n household: No entered on: 12/15/13 Sex Patient Care team information PersonnelName: Genesis Shepherd MD, V Address: Address: [address] [place] [address]
--- OUTSIDE RECORDS SUMMARY | 2022-02-25 02:55 | XMS_ITS | Continuity of Care Document ---
:1975 Author Organization [facility] Address Unavailable , Care Team Providers Name Role Phone Dave LARA, Brody Maldonado Primary Care Physician En[place] [facility] Date(s): 06/21/21 - 07/21/21 [facility] Allergies, Adverse Reactions, Alerts Substance Reaction Severity Status [place] Nausea, Abdominal discomfort Act tiffanie Latex rash [...] oral tablet See Instructions, 1/2tab in AM [id number];then1/2tabBID x 7 d;then 1 tab in AM and!/2 in HHr4zkdb; then 1 tab BID going forward, # 180 tablet, Refills 3, Tot. Refills 3, Maintenance, 08/23/20 10:20:00EDT, Instructions Replace Required Details, Route... Start Date: 08/23/20 Status: OrderedVitamin D 85485 iu oral capsule 50,000 International_Units, 1, capsule, By Mouth, Every week, # 4 capsule, Refills 5, Tot. Refills 5, Maintenance, 12/17/19 15:39:00 EDT, Route to Pharmacy Electronically, [facility]/pharmacy #[id number], 165, cm, 07/29/19 8:20:00 EDT, Height, 66.8, kg, 03/16/19 1... Start Date: 12/17/19 Status: OrderedVumerity 231 mg oral delayed release capsule 1 capsule = 231 mg, By Mouth, 2 times a day, do not take with high fat meal, # 28 capsule, 0 Refills, Maintenance, 04/04/21 20:32:00 EST, CR Capsule, [facility], Partial fill upon patient request if the prescription is for a schedule... Start Date: 04/04/21 Stop Date: 04/18/21 Status: OrderedVumerity 231 mg oral delayed release capsule 2 capsule = 462 mg, By Mouth, 2 times a day, do not take with high fat meal, # 120 capsule, 5 Refills, Maintenance, 04/04/21 20:32:00 EST, CR Capsule, [facility], Partial fill upon patient request if [...]
--- OUTSIDE RECORDS SUMMARY | 2022-02-25 02:55 | XMS_ITS | Continuity of Care Document ---
:1975 Author Organization [facility] Address Unavailable , Care Team Providers Name Role Phone Dave LARA, Brody Maldonado Primary Care Physician [facility] Date(s): 10/30/21 - 11/29/21 [facility] Allergies, Adverse Reactions, Alerts Substance Reaction Severity Status [place] Nausea, Abdominal discomfort Act tiffanie Latex rash [...] 13:48:... Start Date: 10/05/21 Status: OrderedVitamin D 99000 iu oral capsule 50,000 International_Units, 1, capsule, By Mouth, Every week, # 4 capsule, Refills 5, Tot. Refills 5, Maintenance, 12/17/19 15:39:00 EDT, Route to Pharmacy Electronically, [facility]/pharmacy #[id number], 165, cm, 07/29/19 8:20:00 EDT, Height, 66.8, kg, 03/16/19 1... Start Date: 12/17/19 Status: OrderedVumerity 231 mg oral delayed release capsule 1 capsule = 231 mg, By Mouth, 2 times a day, do not take with high fat meal, # 28 capsule, 0 Refills, Maintenance, 04/04/21 20:32:00 EST, CR Capsule, [facility], Partial fill upon patient request if the prescription is for a schedule... Start Date: 04/04/21 Stop Date: 04/18/21 Status: OrderedVumerity 231 mg oral delayed release capsule 2 capsule = 462 mg, By Mouth, 2 times a day, do not take with high fat meal, # 120 capsule, 5 Refills, Maintenance, 04/04/21 20:32:00 EST, CR Capsule, [facility], Partial fill upon patient request [...]
--- OUTSIDE RECORDS SUMMARY | 2022-02-25 02:55 | XMS_ITS | Continuity of Care Document ---
:1975 Author Organization [facility] Address [address] [place] [address]- Care Team Providers Name Role Phone Dave LARA, Brody Maldonado Primary Care Physician [place] [facility] Date(s): 07/03/21 - 08/02/21 [facility] [address] [address] Allergies, Adverse Reactions, Alerts Substance Reaction Severity Status [place] Nausea, Abdominal discomfort Act tiffanie Latex rash [...] oral tablet See Instructions, 1/2tab in AM [id number];then1/2tabBID x 7 d;then 1 tab in AM and!/2 in UKx4nwuw; then 1 tab BID going forward, # 180 tablet, Refills 3, Tot. Refills 3, Maintenance, 08/23/20 10:20:00EDT, Instructions Replace Required Details, Route... Start Date: 08/23/20 Status: OrderedVitamin D 49132 iu oral capsule 50,000 International_Units, 1, capsule, By Mouth, Every week, # 4 capsule, Refills 5, Tot. Refills 5, Maintenance, 12/17/19 15:39:00 EDT, Route to Pharmacy Electronically, [facility]/pharmacy #[id number], 165, cm, 07/29/19 8:20:00 EDT, Height, 66.8, kg, 03/16/19 1... Start Date: 12/17/19 Status: OrderedVumerity 231 mg oral delayed release capsule 1 capsule = 231 mg, By Mouth, 2 times a day, do not take with high fat meal, # 28 capsule, 0 Refills, Maintenance, 04/04/21 20:32:00 EST, CR Capsule, [facility], Partial fill upon patient request if the prescription is for a schedule... Start Date: 04/04/21 Stop Date: 04/18/21 Status: OrderedVumerity 231 mg oral delayed release capsule 2 capsule = 462 mg, By Mouth, 2 times a day, do not take with high fat meal, # 120 capsule, 5 Refills, Maintenance, 04/04/21 20:32:00 EST, CR Capsule, [facility], Partial fill upon patient request [...]
--- OUTSIDE RECORDS SUMMARY | 2022-02-25 02:55 | XMS_ITS | Continuity of Care Document ---
:1975 Author Organization [facility] Address Unavailable , Care Team Providers Name Role Phone Dave LARA, Brody Maldonado Primary Care Physician Encounter [facility] Date(s): 01/19/21 - 02/18/21 [facility] Allergies, Adverse Reactions, Alerts Substance Reaction Severity Status [place] Nausea, Abdominal discomfort Act tiffanie Latex rash [...] oral tablet See Instructions, 1/2tab in AM [id number];then1/2tabBID x 7 d;then 1 tab in AM and!/2 in NNh6wius; then 1 tab BID going forward, # 180 tablet, Refills 3, Tot. Refills 3, Maintenance, 08/23/20 10:20:00EDT, Instructions Replace Required Details, Route... Start Date: 08/23/20 Status: OrderedVitamin D 15157 iu oral capsule 50,000 International_Units, 1, capsule, By Mouth, Every week, # 4 capsule, Refills 5, Tot. Refills 5, Maintenance, 12/17/19 15:39:00 EDT, Route to Pharmacy Electronically, [facility]/pharmacy #[id number], 165, cm, 07/29/19 8:20:00 [...]
--- OUTSIDE RECORDS SUMMARY | 2022-02-25 02:55 | XMS_ITS | Continuity of Care Document ---
:1975 Author Organization [facility] Address [address] [place] [address], 3rd Floor, [address] [place] [address]- Care Team Providers Name Role Phone Gemma Arrieta Primary Care Physician Encounter [facility] Date(s): 07/30/19 - 08/06/19 [facility] [address] [place] [address], 3rd [facility], [address] [place] [address] [facility] Attending Physician: Not on Staff, Attending MD Allergies, Adverse Reactions, Alerts Substance Reaction Severity Status [place] Nausea, Abdominal discomfort Act tiffanie Latex rash Active red dots traMADol Dizziness Active N+V - Nausea and vomiting Immunizations Given and Recorded Vaccine Date Status Refusal Reason pneumococcal 23-valent vaccine 12/19/13 Given Medications ibuprofen 600 mg oral tablet See Instructions, PRN, required and as before, Refills 0, Maintenance, Pain , Mild, 08/16/17 11:36:53 EDT, Instructions Replace Required Details Start Date: 08/16/17 Status: Ordered Problem List Condition Effective Dates [...]
--- OUTSIDE RECORDS SUMMARY | 2022-02-25 02:55 | XMS_ITS | Continuity of Care Document ---
:1975 Author Organization [facility] Address [address] [place] [address] Drive [address] [place] [address]- Care Team Providers Name Role Phone Joao LARA, Genesis Cevallos Primary Care Physician Encounter [facility] Date(s): 01/22/22 - 02/21/22 [facility] [address] [place], [place] [address] Attending Physician: Muna Jarrett Admitting Physician: Muna Jarrett Referring Physician: AdmtrMuna Allergies, Adverse Reactions, Alerts Substance Reaction Severity Status [place] Nausea, Abdominal discomfort Act tiffanie traMADol Dizziness [...] 13:48:... Start Date: 10/05/21 Status: OrderedVitamin D 88227 iu oral capsule 50,000 International_Units, 1, capsule, By Mouth, Every week, # 4 capsule, Refills 5, Tot. Refills 5, Maintenance, 12/17/19 15:39:00 EDT, Route to Pharmacy Electronically, [facility]/pharmacy #[id number], 165, cm, 07/29/19 8:20:00 EDT, [...] PersonnelName: Genesis Shepherd MD, V Address: Address: [address] [place] [address]
--- OUTSIDE RECORDS SUMMARY | 2022-02-25 02:55 | XMS_ITS | Continuity of Care Document ---
:1975 Author Organization [facility] Address Unavailable , Care Team Providers Name Role Phone Dave LARA, Brody Maldonado Primary Care Physician En[place] [facility] [place] Date(s): 01/10/21 - 02/09/21 [facility] Allergies, Adverse Reactions, Alerts Substance Reaction Severity Status [place] Nausea, Abdominal discomfort Act tiffanie Latex rash [...] oral tablet See Instructions, 1/2tab in AM [id number];then1/2tabBID x 7 d;then 1 tab in AM and!/2 in [id number]; then 1 tab BID going forward, # 180 tablet, Refills 3, Tot. Refills 3, Maintenance, 08/23/20 10:20:00EDT, Instructions Replace Required Details, Route... Start Date: 08/23/20 Status: OrderedVitamin D 33896 iu oral capsule 50,000 International_Units, 1, capsule, By Mouth, Every week, # 4 capsule, Refills 5, Tot. Refills 5, Maintenance, 12/17/19 15:39:00 EDT, Route to Pharmacy Electronically, [facility]/pharmacy #[id number], 165, cm, 07/29/19 8:20:00 EDT, [...]
--- OUTSIDE RECORDS SUMMARY | 2022-02-25 02:55 | XMS_ITS | Continuity of Care Document ---
:1975 Author Organization [facility] Address [address] [place] [address]- Care Team Providers Name Role Phone Dave LARA, Brody Maldonado Primary Care Physician En[place] [facility] [place] Date(s): 12/21/20 - 01/20/21 [facility] [address] [place] [address]- Allergies, Adverse Reactions, Alerts Substance Reaction Severity Status [place] Nausea, Abdominal discomfort Act tiffanie Latex rash [...] oral tablet See Instructions, 1/2tab in AM [id number];then1/2tabBID x 7 d;then 1 tab in AM and!/2 in [id number]; then 1 tab BID going forward, # 180 tablet, Refills 3, Tot. Refills 3, Maintenance, 08/23/20 10:20:00EDT, Instructions Replace Required Details, Route... Start Date: 08/23/20 Status: OrderedVitamin D 17993 iu oral capsule 50,000 International_Units, 1, capsule, By Mouth, Every week, # 4 capsule, Refills 5, Tot. Refills 5, Maintenance, 12/17/19 15:39:00 EDT, Route to Pharmacy Electronically, [facility]/pharmacy #[id number], 165, cm, 07/29/19 8:20:00 [...]
--- OUTSIDE RECORDS SUMMARY | 2022-02-25 02:55 | XMS_ITS | Continuity of Care Document ---
:1975 Author Organization [facility] Address [address] [place] [address]- Care Team Providers Name Role Phone Dave LARA, Brody Maldonado Primary Care Physician En[place] [facility] [place] Date(s): 12/18/20 - 01/17/21 [facility] [address] [facility] [place] [address]- Attending Physician: Muna Jarrett Admitting Physician: Muna Jarrett Referring Physician: AdmtrMuna Allergies, Adverse Reactions, Alerts Substance Reaction Severity Status [place] Nausea, Abdominal discomfort Act tiffanie Latex rash [...] oral tablet See Instructions, 1/2tab in AM [id number];then1/2tabBID x 7 d;then 1 tab in AM and!/2 in OIq9girz; then 1 tab BID going forward, # 180 tablet, Refills 3, Tot. Refills 3, Maintenance, 08/23/20 10:20:00EDT, Instructions Replace Required Details, Route... Start Date: 08/23/20 Status: OrderedVitamin D 90769 iu oral capsule 50,000 International_Units, 1, capsule, By Mouth, Every week, # 4 capsule, Refills 5, Tot. Refills 5, Maintenance, 12/17/19 15:39:00 EDT, Route to Pharmacy Electronically, [facility]/pharmacy #[id number], 165, cm, 07/29/19 8:20:00 EDT, Height, [...]
--- OUTSIDE RECORDS SUMMARY | 2022-02-25 02:55 | XMS_ITS | Continuity of Care Document ---
:1975 Author Organization [facility] Address [address] [place] [address], [address] [place] [address], [address] [place] [address]- Care Team Providers Name Role Phone Dave LARA, Brody Maldonado Primary Care Physician [place] [facility] [place] 07/[place]20 - 08/26/20 [facility] [address] [place] [address], 3rd [facility], [address] [place] [address]- Allergies, Adverse Reactions, Alerts Substance Reaction Severity Status [place] Nausea, Abdominal discomfort Act tiffanie Latex rash [...] oral tablet See Instructions, 1/2tab in AM [id number];then1/2tabBID x 7 d;then 1 tab in AM and!/2 in IQi2kodo; then 1 tab BID going forward, # 180 tablet, Refills 3, Tot. Refills 3, Maintenance, 08/23/20 10:20:00EDT, Instructions Replace Required Details, Route... Start Date: 08/23/20 Status: OrderedVitamin D 80739 iu oral capsule 50,000 International_Units, 1, capsule, By Mouth, Every week, # 4 capsule, Refills 5, Tot. Refills 5, Maintenance, 12/17/19 15:39:00 EDT, Route to Pharmacy Electronically, [facility]/pharmacy #[id number], 165, cm, 07/29/19 8:20:00 [...]
--- OUTSIDE RECORDS SUMMARY | 2022-02-25 02:55 | XMS_ITS | Continuity of Care Document ---
:1975 Author Organization [facility] Address [address] [place] [address]- Care Team Providers Name Role Phone Gemma Arrieta Primary Care Phys[id number] Date[facility] 08/18/19 - 09/23/[address] [address]- [facility] Attending Physician: Calvin Lemons NP Admitting Physician: Calvin Lemons NP Referring Physician: Calvin Lemons NP Allergies, Adverse Reactions, Alerts Substance Reaction Severity Status [place] Nausea, Abdominal discomfort Act tifafnie Latex rash Active red dots traMADol Dizziness [...]
--- OUTSIDE RECORDS SUMMARY | 2022-02-25 02:55 | XMS_ITS | Continuity of Care Document ---
:1975 Author Organization [facility] Address [address] [place] [address]- Care Team Providers Name Role Phone Joao LARA, Genesis Cevallos Primary Care Physician [place] [facility] [place] 01/25/22 - 02/24/22 [facility] [address] [place], [place] [address] Allergies, Adverse Reactions, Alerts Substance Reaction Severity Status [place] Nausea, Abdominal discomfort Act tiffanie Latex rash [...] 13:48:... Start Date: 10/05/21 Status: OrderedVitamin D 44575 iu oral capsule 50,000 International_Units, 1, capsule, By Mouth, Every week, # 4 capsule, Refills 5, Tot. Refills 5, Maintenance, 12/17/19 15:39:00 EDT, Route to Pharmacy Electronically, [facility]/pharmacy [id number], 165, cm, 07/29/19 8:20:00 EDT, Height, [...] 12/15/13 Sex Patient Care team information PersonnelName: Joao LARA, Genesis Cevallos Address: Address: [address] [place] [address] [place], [place] [address]
--- OUTSIDE RECORDS SUMMARY | 2022-02-25 02:55 | XMS_ITS | Continuity of Care Document ---
:1975 Author Organization [facility] Address [address] [place] [address]- Care Team Providers Name Role Phone Dave LARA, Brody Maldonado Primary Care Physician En[facility] [place] [facility] [place] [id number] Date(s): 12/21/21 - 01/20/22 [facility] [address] [address] Attending Physician: Muna Jarrett Admitting Physician: Muna Jarrett Referring Physician: AdmtrMuna Allergies, Adverse Reactions, Alerts Substance Reaction Severity Status [place] Nausea, Abdominal discomfort Act tiffanie Latex rash [...] 13:48:... Start Date: 10/05/21 Status: OrderedVitamin D 03303 iu oral capsule 50,000 International_Units, 1, capsule, By Mouth, Every week, # 4 capsule, Refills 5, Tot. Refills 5, Maintenance, 12/17/19 15:39:00 EDT, Route to Pharmacy Electronically, [facility]/pharmacy #[id number], 165, cm, 07/29/19 8:20:00 EDT, [...] Date: 12/31/21 Status: Ordered Problem List Condition Effective Dates [...] n household: No entered on: 12/15/13 Sex Care Team PersonnelName: Dave LARA , Brody Maldonado Address: [address] [place] [address]
--- OUTSIDE RECORDS SUMMARY | 2022-02-25 02:55 | XMS_ITS | Continuity of Care Document ---
:1975 Author Organization [facility] Address [address] [place] [address], 3rd Floor, [address] [place] [address]- Care Team Providers Name Role Phone Gemma Arrieta Primary Care Physician Encounter [facility] [place] Date(s): 07/30/19 - 08/09/19 [facility] [address] [place] [address], 3rd [facility], [address] [place] [address]- [facility] Attending Physician: Muna Jarrett Admitting Physician: Muna Jarrett Referring Physician: Muna Jarrett Allergies, Adverse Reactions, Alerts Substance Reaction Severity Status [place] Nausea, Abdominal discomfort Act tiffanie Latex rash [...]
--- OUTSIDE RECORDS SUMMARY | 2022-02-25 02:55 | XMS_ITS | Continuity of Care Document ---
:1975 Author Organization [facility] Address [address] [place] [address]- Care Team Providers Name Role Phone Dave LARA, Brody Maldonado Primary Care Physician [place] [facility] [place] 07/06/21 - 08/05/21 [facility] [address] [place] [address]- Allergies, Adverse Reactions, Alerts Substance Reaction Severity Status [place] Nausea, Abdominal discomfort Act tiffanie Latex rash [...] oral tablet See Instructions, 1/2tab in AM [id number];then1/2tabBID x 7 d;then 1 tab in AM and!/2 in [id number]; then 1 tab BID going forward, # 180 tablet, Refills 3, Tot. Refills 3, Maintenance, 08/23/20 10:20:00EDT, Instructions Replace Required Details, Route... Start Date: 08/23/20 Status: OrderedVitamin D 87751 iu oral capsule 50,000 International_Units, 1, capsule, By Mouth, Every week, # 4 capsule, Refills 5, Tot. Refills 5, Maintenance, 12/17/19 15:39:00 EDT, Route to Pharmacy Electronically, [facility]/pharmacy #[id number], 165, cm, 07/29/19 8:20:00 EDT, Height, 66.8, kg, 03/16/19 1... Start Date: 12/17/19 Status: OrderedVumerity 231 mg oral delayed release capsule 1 capsule = 231 mg, By Mouth, 2 times a day, do not take with high fat meal, # 28 capsule, 0 Refills, Maintenance, 04/04/21 20:32:00 EST, CR Capsule, [facility], Partial fill upon patient request if the prescription is for a schedule... Start Date: 04/04/21 Stop Date: 04/18/21 Status: OrderedVumerity 231 mg oral delayed release capsule 2 capsule = 462 mg, By Mouth, 2 times a day, do not take with high fat meal, # 120 capsule, 5 Refills, Maintenance, 04/04/21 20:32:00 EST, CR Capsule, [facility], Partial fill upon patient request [...]
--- OUTSIDE RECORDS SUMMARY | 2022-02-25 02:55 | XMS_ITS | Continuity of Care Document ---
:1975 Author Organization [facility] Address Unavailable , Care Team Providers Name Role Phone Dave LARA, Brody Maldonado Primary Care Physician Encounter [facility] [place] Date(s): 02/14/21 - 03/16/21 [facility] Allergies, Adverse Reactions, Alerts Substance Reaction Severity Status [place] Nausea, Abdominal discomfort Act tiffanie Latex rash [...] oral tablet See Instructions, 1/2tab in AM [id number];then1/2tabBID x 7 d;then 1 tab in AM and!/2 in YYa6yrcx; then 1 tab BID going forward, # 180 tablet, Refills 3, Tot. Refills 3, Maintenance, 08/23/20 10:20:00EDT, Instructions Replace Required Details, Route... Start Date: 08/23/20 Status: OrderedVitamin D 57298 iu oral capsule 50,000 International_Units, 1, capsule, By Mouth, Every week, # 4 capsule, Refills 5, Tot. Refills 5, Maintenance, 12/17/19 15:39:00 EDT, Route to Pharmacy Electronically, [facility]/pharmacy #[id number], 165, cm, 07/29/19 [...]
--- OUTSIDE RECORDS SUMMARY | 2022-02-25 02:55 | XMS_ITS | Continuity of Care Document ---
:1975 Author Organization [facility] Address [address] [place] [address]- Care Team Providers Name Role Phone Brody Acosta MD Primary Care Physician Encounter [facility] [place] Date(s): 09/19/20 - 01/17/21 [facility] [address] [facility] [place] [address]- Attending Physician: Yesenia Mclean DO Admitting Physician: Yesenia Mclean DO Referring Physician: Brody Acosta MD Allergies, Adverse Reactions, Alerts Substance Reaction Severity Status [place] Nausea, Abdominal discomfort Act tiffanie Latex rash [...] oral tablet See Instructions, 1/2tab in AM [id number];then1/2tabBID x 7 d;then 1 tab in AM and!/2 in SDy5tfto; then 1 tab BID going forward, # 180 tablet, Refills 3, Tot. Refills 3, Maintenance, 08/23/20 10:20:00EDT, Instructions Replace Required Details, Route... Start Date: 08/23/20 Status: OrderedVitamin D 89644 iu oral capsule 50,000 International_Units, 1, capsule, By Mouth, Every week, # 4 capsule, Refills 5, Tot. Refills 5, Maintenance, 12/17/19 15:39:00 EDT, Route to Pharmacy Electronically, [facility]/pharmacy #[id number], 165, cm, 07/29/19 8:20:00 [...]
--- OUTSIDE RECORDS SUMMARY | 2022-02-25 02:55 | XMS_ITS | Continuity of Care Document ---
:1975 Author Organization [facility] Address [address] [place] [address] Drive [address] [place] [address]- Care Team Providers Name Role Phone Joao LARA, Genesis Cevallos Primary Care Physician Encounter [facility] [place] Date(s): 10/24/21 - 02/21/[address] [place], [place] [address] Attending Physician: Connie RAJPUT, Cyndi Durand Referring Physician: Dave LARA , Brody Maldonado Allergies, Adverse Reactions, Alerts Substance Reaction Severity Status [place] Nausea, Abdominal discomfort Act tiffanie Latex rash [...] 13:48:... Start Date: 10/05/21 Status: OrderedVitamin D 23552 iu oral capsule 50,000 International_Units, 1, capsule, By Mouth, Every week, # 4 capsule, Refills 5, Tot. Refills 5, Maintenance, 12/17/19 15:39:00 EDT, Route to Pharmacy Electronically, [facility]/pharmacy #[id number], 165, cm, 07/29/19 8:20:00 [...] PersonnelName: Joao LARA, Genesis Cevallos Address: Address: [address] [place] [id number]
--- OUTSIDE RECORDS SUMMARY | 2022-02-25 02:55 | XMS_ITS | Continuity of Care Document ---
:1975 Author Organization [facility] Address [address] [place] [address]- Care Team Providers Name Role Phone Dave LARA, Brody Maldonado Primary Care Physician Encounter [facility]CT R [id number] Date(s): 05/09/20 - 07/15/[address] [address] Attending Physician: Guadalupe Chu MD Admitting Physician: Guadalupe Chu MD Referring Physician: Guadalupe Chu MD Allergies, Adverse Reactions, Alerts Substance Reaction Severity Status [place] Nausea, Abdominal discomfort Act tiffanie traMADol Dizziness Active N+V - Nausea and vomiting Latex rash Active red dots Immunizations Given and Recorded Vaccine Date Status Refusal Reason pneumococcal 23-valent vaccine 12/19/13 Given Medications ibuprofen 600 mg oral tablet See Instructions, PRN, required and as before, Refills 0, Maintenance, Pain , Mild, 08/16/17 11:36:53 EDT, Instructions Replace Required Details Start Date: 08/16/17 Status: Orderedlidocaine 4% topical cream See Instructions, Topically around the edge of the areola prior to leaving for the hospital, # 5 Gm,0 Refills, Maintenance, 06/30/20 13:33:00 EST, [facility]/pharmacy #[id number], Partial fill upon patient requestif the prescription is for a schedule II opioid d... Start Date: 06/30/20 Status: OrderedVitamin D 25860 iu oral capsule 50,000 International_Units, 1, capsule, By Mouth, Every week, # 4 capsule, Refills 5, Tot. Refills 5, Maintenance, 12/17/19 15:39:00 EDT, Route to Pharmacy Electronically, [facility]/pharmacy #[id number], 165, cm, 07/29/19 8:20:00 EDT, Height, 66.8, [...]
--- OUTSIDE RECORDS SUMMARY | 2022-02-25 02:55 | XMS_ITS | Continuity of Care Document ---
:1975 Author Organization [facility] Address [address] [place] [address], 3rd Floor, [address] [place] [address]- Care Team Providers Name Role Phone Gemma Arrieta Primary Care Physician Encounter [facility] [place] Date(s): 12/16/19 - 01/15/20 [facility] [address] [place] [address], 3rd [facility], [address] [place] [address] [facility] Allergies, Adverse Reactions, Alerts Substance Reaction Severity Status [place] Nausea, Abdominal discomfort Act tiffanie Latex rash [...] 12/31/19 14:18:00 EDT, Route to Pharmacy Electronically, [facility]/pharmacy #[id number], 165, cm, 07/29/19 8:20:00EDT, Height, 66.8, kg, 03/16/19 16:36:00 EDT, Dry... Start Date: 12/31/19 Status: Orderedibuprofen 600 mg oral tablet See Instructions, PRN, required and as before, Refills 0, Maintenance, Pain , Mild, 08/16/17 11:36:53 EDT, Instructions Replace Required Details Start Date: 08/16/17 Status: OrderedVitamin D 07944 iu oral capsule 50,000 International_Units, 1, capsule, By Mouth, Every week, # 4 capsule, Refills 5, Tot. Refills 5, Maintenance, 12/17/19 15:39:00 EDT, Route to Pharmacy Electronically, [facility]/pharmacy #[id number], 165, cm, 07/29/19 8:20:00 [...]
--- OUTSIDE RECORDS SUMMARY | 2022-02-25 02:55 | XMS_ITS | Continuity of Care Document ---
:1975 Author Organization [facility] Address Unavailable , Care Team Providers Name Role Phone Dave LARA, Brody Maldonado Primary Care Physician Encounter [facility] [place] Date(s): 07/24/21 - 08/23/21 [facility] Allergies, Adverse Reactions, Alerts Substance Reaction Severity Status [place] Nausea, Abdominal discomfort Act tiffanie Latex rash [...] oral tablet See Instructions, 1/2tab in AM [id number];then1/2tabBID x 7 d;then 1 tab in AM and!/2 in OXh7datl; then 1 tab BID going forward, # 180 tablet, Refills 3, Tot. Refills 3, Maintenance, 08/23/20 10:20:00EDT, Instructions Replace Required Details, Route... Start Date: 08/23/20 Status: OrderedVitamin D 55397 iu oral capsule 50,000 International_Units, 1, capsule, By Mouth, Every week, # 4 capsule, Refills 5, Tot. Refills 5, Maintenance, 12/17/19 15:39:00 EDT, Route to Pharmacy Electronically, [facility]/pharmacy #[id number], 165, cm, 07/29/19 8:20:00 EDT, Height, 66.8, kg, 03/16/19 1... Start Date: 12/17/19 Status: OrderedVumerity 231 mg oral delayed release capsule 1 capsule = 231 mg, By Mouth, 2 times a day, do not take with high fat meal, # 28 capsule, 0 Refills, Maintenance, 04/04/21 20:32:00 EST, CR Capsule, [facility], Partial fill upon patient request if the prescription is for a schedule... Start Date: 04/04/21 Stop Date: 04/18/21 Status: OrderedVumerity 231 mg oral delayed release capsule 2 capsule = 462 mg, By Mouth, 2 times a day, do not take with high fat meal, # 120 capsule, 5 Refills, Maintenance, 04/04/21 20:32:00 EST, CR Capsule, [facility], Partial fill upon patient [...]
--- OUTSIDE RECORDS SUMMARY | 2022-02-25 02:55 | XMS_ITS | Continuity of Care Document ---
:1975 Author Organization [facility] [address] [place] [address]- Care Team Providers Name Role Phone Dave LARA, Brody Maldonado Primary Care Physician [place] [facility] [place](s): 01/12/21 - 02/11/21 [facility] [address] [place], [place] [address] Attending Physician: Muna Jarrett Admitting Physician: Muna Jarrett Referring Physician: AdmtrMuna Allergies, Adverse Reactions, Alerts Substance Reaction Severity Status [place] Nausea, Abdominal discomfort Act tiffanie traMADol Dizziness [...] oral tablet See Instructions, 1/2tab in AM [id number];then1/2tabBID x 7 d;then 1 tab in AM and!/2 in PLs0vrup; then 1 tab BID going forward, # 180 tablet, Refills 3, Tot. Refills 3, Maintenance, 08/23/20 10:20:00EDT, Instructions Replace Required Details, Route... Start Date: 08/23/20 Status: OrderedVitamin D 90144 iu oral capsule 50,000 International_Units, 1, capsule, By Mouth, Every week, # 4 capsule, Refills 5, Tot. Refills 5, Maintenance, 12/17/19 15:39:00 EDT, Route to Pharmacy Electronically, [facility]/pharmacy #[id number], 165, cm, 07/29/19 8:20:00 EDT, [...]
--- OUTSIDE RECORDS SUMMARY | 2022-02-25 02:55 | XMS_ITS | Continuity of Care Document ---
:1975 Author Organization [facility] Address [address] [place] [address], 3rd [facility], [address] [place] [address]- Care Team Providers Name Role Phone Dave LARA, Brody Maldonado Primary Care Physician [place] [facility] [place]23[place]20 - 12/23/20 [facility] [address] [place] [address], 3rd [facility], [address] [place] [address] Allergies, Adverse Reactions, Alerts Substance Reaction Severity Status [place] Nausea, Abdominal discomfort Act tiffanie Latex rash [...] oral tablet See Instructions, 1/2tab in AM [id number];then1/2tabBID x 7 d;then 1 tab in AM and!/2 in AYj8veqv; then 1 tab BID going forward, # 180 tablet, Refills 3, Tot. Refills 3, Maintenance, 08/23/20 10:20:00EDT, Instructions Replace Required Details, Route... Start Date: 08/23/20 Status: OrderedVitamin D 56681 iu oral capsule 50,000 International_Units, 1, capsule, By Mouth, Every week, # 4 capsule, Refills 5, Tot. Refills 5, Maintenance, 12/17/19 15:39:00 EDT, Route to Pharmacy Electronically, [facility]/pharmacy #[id number], 165, cm, 07/29/19 8:20:00 [...]
--- OUTSIDE RECORDS SUMMARY | 2022-02-25 02:55 | XMS_ITS | Continuity of Care Document ---
:1975 Author Organization [facility] Address [address] [place] [address], 3rd Floor, [address] [place] [address]- Care Team Providers Name Role Phone Gemma Arrieta Primary Care Physician En[place] [facility] [place] Date(s): 12/10/19 - 01/09/20 [facility] [address] [place] [address], 3rd [facility], [address] [place] [address]- [facility] Allergies, Adverse Reactions, Alerts Substance Reaction Severity Status [place] Nausea, Abdominal discomfort Act tiffanie Latex rash [...] 12/31/19 14:18:00 EDT, Route to Pharmacy Electronically, [facility]/pharmacy #[id number], 165, cm, 07/29/19 8:20:00EDT, Height, 66.8, kg, 03/16/19 16:36:00 EDT, Dry... Start Date: 12/31/19 Status: Orderedibuprofen 600 mg oral tablet See Instructions, PRN, required and as before, Refills 0, Maintenance, Pain , Mild, 08/16/17 11:36:53 EDT, Instructions Replace Required Details Start Date: 08/16/17 Status: OrderedVitamin D 20608 iu oral capsule 50,000 International_Units, 1, capsule, By Mouth, Every week, # 4 capsule, Refills 5, Tot. Refills 5, Maintenance, 12/17/19 15:39:00 EDT, Route to Pharmacy Electronically, [facility]/pharmacy #[id number], 165, cm, 07/29/19 8:20:00 [...]
--- OUTSIDE RECORDS SUMMARY | 2022-02-25 02:55 | XMS_ITS | Continuity of Care Document ---
:1975 Author Organization [facility] Address [address] [place] [address], 3rd Floor, [address] [place] [address]- Care Team Providers Name Role Phone Gemma Arrieta Primary Care Physician Encounter [facility] [place] Date(s): 04/06/20 - 05/06/20 [facility], 3rd Floor, [address] [place] [address]- Attending Physician: Muna Jarrett Admitting Physician: Muna Jarrett Referring Physician: AdmtrMuna Allergies, Adverse Reactions, Alerts Substance Reaction Severity Status [place] Nausea, Abdominal discomfort Act tiffanie Latex rash [...] 12/31/19 14:18:00 EDT, Route to Pharmacy Electronically, [facility]/pharmacy #[id number], 165, cm, 07/29/19 8:20:00EDT, Height, 66.8, [...] tablet, 1 Refills, Maintenance,01/19/20 10:27:00 EDT, Tablet, [facility]/pharmacy #[id number], 165, cm, 07/29/19 8:20:00 EDT, Height, 66.8, kg, 03/16/19 16:36:00 EDT, Dry Weight Start Date: 01/19/20 Status: OrderedOcrevus 600 mg, IV Infusion, Every 6 months, Maintenance, 03/25/20 8:09:00 EST Start Date: 03/25/20 Status: OrderedVitamin D 63079 iu oral capsule 50,000 International_Units, 1, capsule, By Mouth, Every week, # 4 capsule, Refills 5, Tot. Refills 5, Maintenance, 12/17/19 15:39:00 EDT, Route to Pharmacy Electronically, [facility]/pharmacy #[id number], 165, cm, 07/29/19 [...] Sclerosis(Confirmed) Active Nausea(Confirmed) Active Optic Neuritis(Confirmed) Active Vital Signs Most recent to oldest [Reference Range]: 1 Height 165 cm (11/26/16 3:31 PM) Weight 69 kg (11/26/16 3:31 PM) Social History Social History Type Response Smoking Status Never smoker; Tobacco user i n household: No entered on: 12/15/13 Sex
--- OUTSIDE RECORDS SUMMARY | 2022-02-25 02:55 | XMS_ITS | Continuity of Care Document ---
:1975 Author Organization [facility] Address Unavailable , Care Team Providers Name Role Phone Dave LARA, Brody Maldonado Primary Care Physician Encounter [facility] [place] Date(s): 02/27/21 - 03/29/21 [facility] Attending Physician: Muna Jarrett Admitting Physician: Muna Jarrett Referring Physician: Muna Jarrett Allergies, Adverse Reactions, Alerts Substance Reaction Severity Status [place] Nausea, Abdominal discomfort Act tiffanie Latex rash [...] oral tablet See Instructions, 1/2tab in AM [id number];then1/2tabBID x 7 d;then 1 tab in AM and!/2 in [id number]; then 1 tab BID going forward, # 180 tablet, Refills 3, Tot. Refills 3, Maintenance, 08/23/20 10:20:00EDT, Instructions Replace Required Details, Route... Start Date: 08/23/20 Status: OrderedVitamin D 22503 iu oral capsule 50,000 International_Units, 1, capsule, [...] Postoperative breast Active asymmetry(Confirmed) Optic Neuritis(Confirmed) Active Vital Signs Most recent to oldest [Reference Range]: 1 Height 165 cm (11/26/16 3:31 PM) Weight 69 kg (11/26/16 3:31 PM) Social History Social History Type Response Smoking Status Never smoker; Tobacco user i n household: No entered on: 12/15/13 Sex
--- OUTSIDE RECORDS SUMMARY | 2022-02-25 02:55 | XMS_ITS | Continuity of Care Document ---
:1975 Author Organization [facility] Address Unavailable , Care Team Providers Name Role Phone Dave LARA, Brody Maldonado Primary Care Physician Encounter [facility] [place] Date(s): 04/19/21 - 05/19/21 [facility] Allergies, Adverse Reactions, Alerts Substance Reaction Severity Status [place] Nausea, Abdominal discomfort Act tiffanie Latex rash [...] oral tablet See Instructions, 1/2tab in AM [id number];then1/2tabBID x 7 d;then 1 tab in AM and!/2 in [id number]; then 1 tab BID going forward, # 180 tablet, Refills 3, Tot. Refills 3, Maintenance, 08/23/20 10:20:00EDT, Instructions Replace Required Details, Route... Start Date: 08/23/20 Status: OrderedVitamin D 49714 iu oral capsule 50,000 International_Units, 1, capsule, By Mouth, Every week, # 4 capsule, Refills 5, Tot. Refills 5, Maintenance, 12/17/19 15:39:00 EDT, Route to Pharmacy Electronically, [facility]/pharmacy #[id number], 165, cm, 07/29/19 8:20:00 EDT, Height, 66.8, kg, 03/16/19 1... Start Date: 12/17/19 Status: OrderedVumerity 231 mg oral delayed release capsule 1 capsule = 231 mg, By Mouth, 2 times a day, do not take with high fat meal, # 28 capsule, 0 Refills, Maintenance, 04/04/21 20:32:00 EST, CR Capsule, [facility], Partial fill upon patient request if the prescription is for a schedule... Start Date: 04/04/21 Stop Date: 04/18/21 Status: OrderedVumerity 231 mg oral delayed release capsule 2 capsule = 462 mg, By Mouth, 2 times a day, do not take with high fat meal, # 120 capsule, 5 Refills, Maintenance, 04/04/21 20:32:00 EST, CR Capsule, [facility], Partial fill upon patient request [...]
--- OUTSIDE RECORDS SUMMARY | 2022-02-25 02:55 | XMS_ITS | Continuity of Care Document ---
:1975 Author Organization [facility] Address [address] [place] [address]- Care Team Providers Name Role Phone Dave LARA, Brody Maldonado Primary Care Physician [place] [facility] [place]09[place] - 01/24/[address] [address] Attending Physician: Lewis Winkler MD Admitting Physician: Lewis Winkler MD Allergies, Adverse Reactions, Alerts Substance Reaction Severity Status [place] Nausea, Abdominal discomfort Act tiffanie traMADol Dizziness [...] 13:48:... Start Date: 10/05/21 Status: OrderedVitamin D 18586 iu oral capsule 50,000 International_Units, 1, capsule, By Mouth, Every week, # 4 capsule, Refills 5, Tot. Refills 5, Maintenance, 12/17/19 15:39:00 EDT, Route to Pharmacy Electronically, [facility]/pharmacy #[id number], 165, cm, 07/29/19 [...] entered on: 12/15/13 Sex Care Team PersonnelName: Brody Acosta MD Address: [address] [place] [address]
--- OUTSIDE RECORDS SUMMARY | 2022-02-25 02:55 | XMS_ITS | Continuity of Care Document ---
:1975 Author Organization [facility] Address [address] [place] [address]- Care Team Providers Name Role Phone Brody Acosta MD Primary Care Physician [place] [facility] [place] 06/20/21 - 07/22/21 [facility] [address] [place] [address]- Attending Physician: Evonne Andrews NP Admitting Physician: Darryl RAJPUT, Evonne Referring Physician: Brody Acosta MD Allergies, Adverse Reactions, Alerts Substance Reaction Severity Status [place] Nausea, Abdominal discomfort Act tiffanie Latex rash [...] oral tablet See Instructions, 1/2tab in AM [id number];then1/2tabBID x 7 d;then 1 tab in AM and!/2 in [id number]; then 1 tab BID going forward, # 180 tablet, Refills 3, Tot. Refills 3, Maintenance, 08/23/20 10:20:00EDT, Instructions Replace Required Details, Route... Start Date: 08/23/20 Status: OrderedVitamin D 27261 iu oral capsule 50,000 International_Units, 1, capsule, By Mouth, Every week, # 4 capsule, Refills 5, Tot. Refills 5, Maintenance, 12/17/19 15:39:00 EDT, Route to Pharmacy Electronically, [facility]/pharmacy #[id number], 165, cm, 07/29/19 8:20:00 EDT, Height, 66.8, kg, 03/16/19 1... Start Date: 12/17/19 Status: OrderedVumerity 231 mg oral delayed release capsule 1 capsule = 231 mg, By Mouth, 2 times a day, do not take with high fat meal, # 28 capsule, 0 Refills, Maintenance, 04/04/21 20:32:00 EST, CR Capsule, [facility], Partial fill upon patient request if the prescription is for a schedule... Start Date: 04/04/21 Stop Date: 04/18/21 Status: OrderedVumerity 231 mg oral delayed release capsule 2 capsule = 462 mg, By Mouth, 2 times a day, do not take with high fat meal, # 120 capsule, 5 Refills, Maintenance, 04/04/21 20:32:00 EST, CR Capsule, [facility], Partial fill upon patient request [...]
--- OUTSIDE RECORDS SUMMARY | 2022-02-25 02:56 | XMS_ITS | Continuity of Care Document ---
:1975 Author Organization [facility] Address Unavailable , Care Team Providers Name Role Phone Dave LARA, Brody Maldonado Primary Care Physician [place] [facility] [facility] [place]18[place] - 02/17/21 [facility] Allergies, Adverse Reactions, Alerts Substance Reaction Severity Status [place] Nausea, Abdominal discomfort Act tiffanie Latex rash [...] oral tablet See Instructions, 1/2tab in AM [id number];then1/2tabBID x 7 d;then 1 tab in AM and!/2 in [id number]; then 1 tab BID going forward, # 180 tablet, Refills 3, Tot. Refills 3, Maintenance, 08/23/20 10:20:00EDT, Instructions Replace Required Details, Route... Start Date: 08/23/20 Status: OrderedVitamin D 59205 iu oral capsule 50,000 International_Units, 1, capsule, [...]
--- OUTSIDE RECORDS SUMMARY | 2022-02-25 02:56 | XMS_ITS | Continuity of Care Document ---
:1975 Author Organization [facility] Address [address] [place] [address]- Care Team Providers Name Role Phone Brody Acosta MD Primary Care Physician Encounter [facility] [place] Date(s): 06/26/20 - 08/05/[address] [address] Attending Physician: Brody Acosta MD Admitting Physician: Brody Acosta MD Referring Physician: Brody Acosta MD Allergies, Adverse Reactions, Alerts Substance Reaction Severity Status [place] Nausea, Abdominal discomfort Act tiffanie Latex rash [...] Details Start Date: 08/16/17 Status: OrderedVitamin D 61429 iu oral capsule 50,000 International_Units, 1, capsule, By Mouth, Every week, # 4 capsule, Refills 5, Tot. Refills 5, Maintenance, 12/17/19 15:39:00 EDT, Route to Pharmacy Electronically, [facility]/pharmacy #[id number], 165, cm, 07/29/19 8:20:00 EDT, Height, 66.8, [...]
--- OUTSIDE RECORDS SUMMARY | 2022-02-25 02:56 | XMS_ITS | Continuity of Care Document ---
:1975 Author Organization [facility] Address [address] [place] [address], 3rd Floor, [address] [place] [address]- Care Team Providers Name Role Phone Dave LARA, Brody Maldonado Primary Care Physician Encounter [facility] [place] Date(s): 12/10/21 - 01/09/22 [facility] [address] [place] [address], [address] [place] [address], [address] [place] [address]- Attending Physician: Muna Jarrett Admitting Physician: Muna Jarrett Referring Physician: Muna Jarrett Allergies, Adverse Reactions, Alerts Substance Reaction Severity Status [place] Nausea, Abdominal discomfort Act tiffanie Latex rash [...] 13:48:... Start Date: 10/05/21 Status: OrderedVitamin D 45887 iu oral capsule 50,000 International_Units, 1, capsule, By Mouth, Every week, # 4 capsule, Refills 5, Tot. Refills 5, Maintenance, 12/17/19 15:39:00 EDT, Route to Pharmacy Electronically, [facility]/pharmacy #[id number], 165, cm, 07/29/19 8:20:00 [...]
--- OUTSIDE RECORDS SUMMARY | 2022-02-25 02:56 | XMS_ITS | Continuity of Care Document ---
:1975 Author Organization [facility] Address [address] [place] [address]- Care Team Providers Name Role Phone Dave LARA, Brody Maldonado Primary Care Physician [place] [facility] [place]/06[place] - 10/06/[address] [address] Attending Physician: Muna Jarrett Admitting Physician: Muna Jarrett Referring Physician: AdmtrMuna Allergies, Adverse Reactions, Alerts Substance Reaction Severity Status [place] Nausea, Abdominal discomfort Act tiffanie Latex rash [...] Replace Required Details Start Date: 08/16/17 Status: Orderedmometasone 0.1% topical cream See Instructions, 1 application Topically BID apply a thin film, # 45 Gm, 2 Refills, Acute 01/07/21 9:21:00 EDT, 10/06/20 9:21:00 EDT, Cream, [facility]/pharmacy #[id number], Partial fill upon patient request if the prescription is for a schedule II opioid drug.,... Start Date: 10/06/20 Stop Date: 01/07/21 Status: Orderedtamoxifen 10 mg oral tablet See Instructions, 1/2tab in AM [id number];then1/2tabBID x 7 d;then 1 tab in AM and!/2 in FRo1svwj; then 1 tab BID going forward, # 180 tablet, Refills 3, Tot. Refills 3, Maintenance, 08/23/20 10:20:00EDT, Instructions Replace Required Details, Route... Start Date: 08/23/20 Status: OrderedVitamin D 82162 iu oral capsule 50,000 International_Units, 1, capsule, By Mouth, Every week, # 4 capsule, Refills 5, Tot. Refills 5, Maintenance, 12/17/19 15:39:00 EDT, Route to Pharmacy Electronically, [facility]/pharmacy #[id number], 165, cm, 07/29/19 8:20:00 EDT, [...]
--- OUTSIDE RECORDS SUMMARY | 2022-02-25 02:56 | XMS_ITS | Continuity of Care Document ---
:1975 Author Organization [facility] Address [address] [place] [address], 3rd [facility], [address] [place] [address]- Care Team Providers Name Role Phone Dave LARA, Brody Maldonado Primary Care Physician Encounter [facility] [place] Date(s): 06/14/20 - 07/14/20 [facility] [address] [place] [address], 3[address] [facility], [address] [place] [address] Allergies, Adverse Reactions, Alerts Substance Reaction Severity Status [place] Nausea, Abdominal discomfort Act tiffanie Latex rash [...] 5 Gm,0 Refills, Maintenance, 06/30/20 13:33:00 EST, [facility]/pharmacy #[id number], Partial fill upon patient requestif the prescription is for a schedule II opioid d... Start Date: 06/30/20 Status: OrderedNorco 325 mg-5 mg oral tablet 1 tablet, By Mouth, Every 6 hours, PRN as needed for pain, for 3 days, # 10 tablet, 0 Refills, Acute07/15/20 14:48:00 EST, 07/12/20 14:48:00 EST, Tablet, Partial fill upon patient request if the prescription is for a schedule II opioid drug. Start Date: 07/12/20 Stop Date: 07/15/20 Status: OrderedVitamin D 18421 iu oral capsule 50,000 International_Units, 1, capsule, [...]
--- OUTSIDE RECORDS SUMMARY | 2022-02-25 02:56 | XMS_ITS | Continuity of Care Document ---
:1975 Author Organization [facility] Address [address] [place] [address], 3rd Floor, [address] [place] [address]- Care Team Providers Name Role Phone Gemma Arrieta Primary Care Physician En[place] [facility] [place] Date(s): 01/31/20 - 03/01/20 [facility] [address] [place] [address], 3rd Floor, [address] [place] [address] [facility] Allergies, Adverse Reactions, Alerts Substance Reaction Severity Status [place] Nausea, Abdominal discomfort Act tiffanie Latex rash [...] 12/31/19 14:18:00 EDT, Route to Pharmacy Electronically, [facility]/pharmacy #[id number], 165, cm, 07/29/19 8:20:00EDT, Height, 66.8, kg, [...] tablet, 1 Refills, Maintenance,01/19/20 10:27:00 EDT, Tablet, [facility]/pharmacy #[id number], 165, cm, 07/29/19 8:20:00 EDT, Height, 66.8, kg, 03/16/19 16:36:00 EDT, Dry Weight Start Date: 01/19/20 Status: OrderedVitamin D 77821 iu oral capsule 50,000 International_Units, 1, capsule, By Mouth, Every week, # 4 capsule, Refills 5, Tot. Refills 5, Maintenance, 12/17/19 15:39:00 EDT, Route to Pharmacy Electronically, [facility]/pharmacy #[id number], 165, cm, 07/29/19 [...]
[2022-02-25 03:00] LABS: Appearance Urine Cloudy; Color Urine Yellow; Glucose Urine UA Negative (Negative); Leukocyte Esterase Urine Trace (Negative); Nitrite Urine Negative (Negative); PH 5.5 (5.0-9.0); Specific Gravity - Urine 1.025 (1.005-1.025); UMIC TRIGGER UACC YES; Urine Blood Large (3+) (Negative); Urine Ketones Trace mg/dL (Negative); Urine Protein 30 (1+) mg/dL (Neg-Trace)
[2022-02-25 03:02] LABS: Bacteria Urine None Seen (None Seen); Hyaline Casts Urine 0-2 /LPF (0-2); RBC Urine >20 /HPF (0-2); Squamous Epithelial Cell Urine 0-2 /HPF (0-2); WBC Urine 0-5 /HPF (0-5)
--- NOTE | 2022-02-25 03:21 | ED_ITS ---
HPI - General Adult General Chief complaint: Abdominal Pain Stated complaint: blood in urine Time Seen by Provider: 02/25/22 03:09 Source: patient Mode of arrival: ambulatory Limitations: no limitations History of Present Illness HPI narrative: Patient comes to the emergency room complaining of right-sided flank pain and hematuria that started 30 minutes prior to arrival to the ED. patient denies fever chills, no nausea vomiting or diarrhea. Related Data Home Medications Medication Instructions Recorded Confirmed ergocalciferol (vitamin D2) 1,250 1,250 mcg PO QWEEK 03/17/20 01/04/22 mcg (50,000 unit) capsule tamoxifen 10 mg tablet 20 mg PO DAILY 10/31/21 01/04/22 Previous Rx's Medication Instructions Recorded cyclobenzaprine 10 mg tablet 10 mg PO TID PRN muscle spasm 1 09/13/21 month #90 tabs ibuprofen 600 mg tablet 600 mg PO TID PRN pain 14 days #90 09/13/21 tabs prednisone 10 mg tablet See Rx Instructions PO DAILY 10 10/31/21 days #28 tabs valacyclovir 1 gram tablet 2,000 mg PO Q12H 1 day #4 tabs 12/11/21 omeprazole 40 mg capsule,delayed 40 mg PO DAILY 30 days #30 caps 01/04/22 release amoxicillin 500 mg tablet 1,000 mg PO BID 14 days #56 tabs 01/13/22 clarithromycin 500 mg tablet 500 mg PO BID 14 days #28 tabs 01/13/22 levofloxacin 750 mg tablet 750 mg PO DAILY #10 tabs 02/25/22 phenazopyridine 100 mg tablet 100 mg PO TID 6 doses #6 tabs 02/25/22 Allergies Allergy/AdvReac Type Severity Reaction Status Date / Time corn [CORN] Allergy Unknown SEVERE Verified 01/04/22 16:15 CRAMPING, NAUSEA latex [LATEX] Allergy Unknown RASH Verified 01/04/22 16:15 tramadol [TRAMADOL] AdvReac Unknown VOMITING, Verified 01/04/22 16:15 n/v, vomiting Review of Systems Review of Systems: Constitutional : No Weight loss, No Fever, No Chills, No Night Sweats, No Fatigue, No Malaise ENT/Mouth : No Hearing loss, No Ear Pain, No Nasal Congestion, No Sinus Pain, No Hoarseness, No sore throat, No Rhinorrhea, No Swallowing Difficulty Eyes: No Eye Pain, No Swelling, No Redness, No Foreign Body, No Discharge, No Vision Changes Cardiovascular : No Chest Pain, No SOB, No Dyspnea on Exertion, No Orthopnea, No Edema, No Palpitations Respiratory : No Cough, No Sputum, No Wheezing, No Smoke Exposure, No Dyspnea Gastrointestinal : No Nausea, No Vomiting, No Diarrhea, No Constipation, No abdominal Pain, No Hematochezia, No Melena Genitourinary : Mild dysuria, complaining of hematuria, No Urinary Incontinence, No Urgency, No Flank Pain, No Urinary Flow Changes, No Hesitancy Musculoskeletal : No joint pain, No Myalgias, No Joint Swelling Skin : No Skin Lesions, No rash Neuro : No Weakness, No Numbness, No Paresthesias, No Loss of Consciousness, No Dizziness, No Headache Psych : No Anxiety/Panic, No Depression, No SI/HI/AH/VH, No Social Issues, Heme/Lymph: No Bruising, No Bleeding,No Lymphadenopathy Endocrine : No Polyuria, No Polydipsia, No Temperature Intolerance COUNT INCLUDES THE [facility] Past Medical History Medical History Multiple sclerosis Surgical History Ductal carcinoma in situ of left breast History of hysterectomy History of tubal ligation History of wisdom tooth extraction Infiltrating ductal carcinoma of right breast Family History Family History Maternal Grandmother History of bone cancer Social History Social History Housing: House Alcohol intake: current Alcohol intake frequency: holidays/special occasions only Patient Tobacco Use Status: Never used Tobacco e-Cigarette/Vaping Use: Never Used Second Hand Smoke Exposure: No Advance Directives: No Advance Directives Information Provided: No service: No Current occupational status: employed Current occupation: [employer] Cognitive needs: No Hearing needs: No Vision needs: Yes (Glasses) Physical Exam ED Vital Signs: Vital Signs - 24 hr 02/24/22 21:16 02/25/22 02:51 Temperature 97.6 F Pulse Rate 84 77 Respiratory Rate 14 22 H Blood Pressure 135/74 133/82 Pulse Oximetry 95 100 Oxygen Delivery Method Room Air Room Air BMI result Body Mass Index 25.2 Const Other: Appearance: Alert. Oriented X3. No acute distress. Eyes: Pupils equal, round and reactive to light. ENT: Pharynx normal. Neck: Normal inspection. Neck supple. No lymph nodes noted. No crepitus CVS: Normal heart rate and rhythm. Pulses normal. Normal S1 and S2 Respiratory: No respiratory distress. Breath sounds normal. No Wheezing. No rales Abdomen: Soft and nontender. No rigidity. No distention. Positive right-sided flank Skin: Skin warm and dry. Normal skin color. Normal skin turgor. Extremities: No lower extremity edema. No Lacerations. No Rash Neuro: Oriented X 3. No motor deficit. No sensory deficit. Moving all extremities. No slurred speech. CN 2 through 12 grossly intact Psych: calm, cooperative, normal affect Course Course Course Narrative: I discussed with the patient that she had a CT scan approximately a month ago, the stones were still in the collecting duct. It is possible that she may have at this time ureterolithiasis. We will repeat a CT scan. Patient given levofloxacin and phenazopyridine CT scan is negative for ureterolithiasis Patient clinically has pyelonephritis. Sepsis is not suspected. Medical Decision Making Lab Data Result diagrams: 02/24/22 22:13 02/24/22 22:13 Labs: Lab Results 02/24/22 02/24/22 02/25/22 Range/Units 22:13 22:13 02:53 WBC 5.3 (4.8-10.8) X10*3/uL RBC 4.07 L (4.20-5.50) X10*6/uL Hgb 11.9 L (12.0-16.0) g/dl Hct 36.6 L (37.0-47.0) % MCV 89.9 (80.0-98.0) fL MCH 29.2 (27.0-33.0) pg MCHC 32.5 (31.0-35.0) g/dl RDW 13.5 (11.0-16.0) % Plt Count 187 (160-400) X10*3/uL MPV 9.7 (9.4-12.3) fL Immature Gran % (Auto) 0.4 (0.0-0.4) % Neut % (Auto) 50.6 (45-73) % Lymph % (Auto) 32.2 (20-40) % [place] % (Auto) 13.9 H (2-11) % Eos % (Auto) 2.3 (0-4) % Baso % (Auto) 0.6 (0-2) % Lymph # (Auto) 1.7 (1.2-4.9) X10*3/uL [place] # (Auto) 0.7 (0.1-1.2) X10*3/uL Eos # (Auto) 0.1 (0.0-0.4) X10*3/uL Baso # (Auto) 0.0 (0.0-0.2) X10*3/uL Abs Immat Gran (auto) 0.02 (0.00-0.03) X10*3/uL Absolute Neuts (auto) 2.7 (2.0-8.3) x10*3/uL Absolute Nucleated RBC 0.000 (0.0-0.012) X10*3/uL Nucleated RBC % (auto) 0.0 (0.0-0.2) /100WBC Sodium 142 (135-145) mmol/L Potassium 3.8 (3.3-5.1) mmol/L Chloride 108 (96-108) mmol/L Carbon Dioxide 24 (22-29) mmol/L Anion Gap 14 (12-20) BUN 18 H (9-16) mg/dL Creatinine 0.72 (0.5-1.4) mg/dL Estim Creat Clear Calc 93.2 Estimated GFR > 60 Random Glucose 82 (60-115) mg/dL Calcium 9.4 (8.4-10.2) mg/dL Total Bilirubin 0.2 (0.0-1.0) mg/dL AST 20 (5-31) U/L ALT 22 (0-31) U/L Alkaline Phosphatase 118 H (39-117) U/L Total Protein 6.9 (6.5-8.0) g/dL Albumin 4.3 (3.5-5.0) g/dL Lipase 50 (8-78) U/L Urine Color Yellow Urine Appearance Cloudy Urine pH 5.5 (5.0-9.0) Ur Specific [place] 1.025 (1.005-1.025) Urine Protein 30 (1+) H (Neg-Trace) mg/dL Urine Glucose (UA) Negative (Negative) mg/dL Urine Ketones Trace (Negative) mg/dL Urine Blood Large (3+) H (Negative) Urine Nitrite Negative (Negative) Ur Leukocyte Esterase Trace H (Negative) Urine RBC >20 H (0-2) /HPF Urine WBC 0-5 (0-5) /HPF Ur Squamous Epith Cells 0-2 (0-2) /HPF Urine Bacteria None Seen (None Seen) Hyaline Casts 0-2 (0-2) /LPF Urine Test (NEGATIVE) 02/25/22 Range/Units 02:53 WBC (4.8-10.8) X10*3/uL RBC (4.20-5.50) X10*6/uL Hgb (12.0-16.0) g/dl Hct (37.0-47.0) % MCV (80.0-98.0) fL MCH (27.0-33.0) pg MCHC (31.0-35.0) g/dl RDW (11.0-16.0) % Plt Count (160-400) X10*3/uL MPV (9.4-12.3) fL Immature Gran % (Auto) (0.0-0.4) % Neut % (Auto) (45-73) % Lymph % (Auto) (20-40) % [place] % (Auto) (2-11) % Eos % (Auto) (0-4) % Baso % (Auto) (0-2) % Lymph # (Auto) (1.2-4.9) X10*3/uL [place] # (Auto) (0.1-1.2) X10*3/uL Eos # (Auto) (0.0-0.4) X10*3/uL Baso # (Auto) (0.0-0.2) X10*3/uL Abs Immat Gran (auto) (0.00-0.03) X10*3/uL Absolute Neuts (auto) (2.0-8.3) x10*3/uL Absolute Nucleated RBC (0.0-0.012) X10*3/uL Nucleated RBC % (auto) (0.0-0.2) /100WBC Sodium (135-145) mmol/L Potassium (3.3-5.1) mmol/L Chloride (96-108) mmol/L Carbon Dioxide (22-29) mmol/L Anion Gap (12-20) BUN (9-16) mg/dL Creatinine (0.5-1.4) mg/dL Estim Creat Clear Calc Estimated GFR Random Glucose (60-115) mg/dL Calcium (8.4-10.2) mg/dL Total Bilirubin (0.0-1.0) mg/dL AST (5-31) U/L ALT (0-31) U/L Alkaline Phosphatase (39-117) U/L Total Protein (6.5-8.0) g/dL Albumin (3.5-5.0) g/dL Lipase (8-78) U/L Urine Color Urine Appearance Urine pH (5.0-9.0) Ur Specific [place] (1.005-1.025) Urine Protein (Neg-Trace) mg/dL Urine Glucose (UA) (Negative) mg/dL Urine Ketones (Negative) mg/dL Urine Blood (Negative) Urine Nitrite (Negative) Ur Leukocyte Esterase (Negative) Urine RBC (0-2) /HPF Urine WBC (0-5) /HPF Ur Squamous Epith Cells (0-2) /HPF Urine Bacteria (None Seen) Hyaline Casts (0-2) /LPF Urine Test NEGATIVE (NEGATIVE) Imaging Data CT scan - abdomen: Radiologist's impression: CLINICAL INFORMATION: Right flank pain? COMPARISON: 01/18/2022? TECHNIQUE: Multidetector volumetric imaging was performed from the superior aspect of the liver through the pubic symphysis. Sagittal and coronal reformatted images were obtained on the technologist's workstation.? This CT examination was performed using dose optimization techniques as appropriate, variously including the following: *Automated exposure control *Adjustment of mA and/or kV according to patient size (this includes techniques or standardized protocols for targeted exams where dose is matched to indication/reason for exam; i.e. extremities or head) *Use of iterative reconstruction technique DLP: 524 mGy-cm FINDINGS: LUNG BASES: The visualized lung bases are unremarkable.? LIVER, GALLBLADDER, AND BILIARY TREE: The liver is normal in size, shape, and attenuation. No focal hepatic lesion or biliary ductal dilatation is identified. The gallbladder is unremarkable with no evidence of radiopaque gallstones, gallbladder wall thickening, or obvious pericholecystic inflammatory changes.? PANCREAS: Unremarkable.? SPLEEN: Unremarkable.? ADRENAL GLANDS: Unremarkable.? KIDNEYS AND URETERS: No hydronephrosis or obstructing calculus bilaterally. There are multiple scattered bilateral renal calculi measuring up to 3 mm.? BLADDER: Nearly empty and not adequately evaluated.? GASTROINTESTINAL TRACT: No evidence of bowel obstruction or significant wall thickening. The appendix is unremarkable. No free fluid or free air is seen.? ABDOMINAL WALL: No significant hernia is appreciated.? LYMPH NODES: Normal. VASCULAR: Unremarkable. PELVIC VISCERA: Status post hysterectomy.? OSSEOUS STRUCTURES: Unremarkable.? CT/CT abdomen pelvis wo IV con IMPRESSION: No hydronephrosis or obstructing calculus. Multiple scattered bilateral renal calculi.? Discharge Plan Discharge Clinical Impression: Pyelonephritis Patient Disposition: Home, Self-Care Instructions: Kidney Infection (ED) Additional Instructions: Please follow-up with your primary care physician tomorrow. If you have any worsening or new symptoms, please return to the emergency room or call 911 Prescriptions: New levofloxacin 750 mg tablet 750 mg PO DAILY Qty: 10 0RF phenazopyridine 100 mg tablet 100 mg PO TID Qty: 6 0RF No Action clarithromycin 500 mg tablet 500 mg PO BID 14 Days Qty: 28 0RF amoxicillin 500 mg tablet 1,000 mg PO BID 14 Days Qty: 56 0RF ergocalciferol (vitamin D2) 1,250 mcg (50,000 unit) capsule 1,250 mcg PO QWEEK tamoxifen 10 mg tablet 20 mg PO DAILY prednisone 10 mg tablet See Rx Instructions PO DAILY 10 Days Qty: 28 0RF Rx Instructions: 4 tabs daily for 4 days, 3 tabs daily for 2 days, 2 tabs daily for 2 days, 1 tab daily for 2 days PO daily; omeprazole 40 mg capsule,delayed release(DR/EC) 40 mg PO DAILY 30 Days Qty: 30 0RF ibuprofen 600 mg tablet 600 mg PO TID PRN (Reason: pain) 14 Days Qty: 90 0RF cyclobenzaprine 10 mg tablet 10 mg PO TID PRN (Reason: muscle spasm) 30 Days Qty: 90 0RF Rx Instructions: corrected sent 10 day supply for 90 in error please disregard other rx valacyclovir 1 gram tablet 2,000 mg PO Q12H 1 Days Qty: 4 0RF
[2022-02-25 03:37] LABS: UPreg QC Valid YES; Urine Pregnancy NEGATIVE (NEGATIVE)
[2022-02-25] MEDS: Phenazopyridine HCL 100 MG TABLET PO (03:40)
[2022-02-25] MEDS: Ketorolac Tromethamine 30 MG/ML VIAL IVPUSH (03:41)
[2022-02-25] MEDS: levoFLOXacin 750 MG TABLET PO (03:41)
[2022-02-25 04:20] VITALS: BP 133/80; PULSE 74; RESP 16; TEMP 36.5; O2SAT 100
== END 2022-02-25 04:29 | disposition home or self-care (01) ==
PROVIDERS: Emergency Provider Emergency Medicine
DX: N12 Tubulo-interstitial nephritis, not specified as acute or chronic (principal); N20.0 Calculus of kidney; R10.9 Unspecified abdominal pain
CPT/HCPCS: 36415; 74176; 80053; 81001; 81025; 83690; 85025; 96374; 99283; 99284; J1885

== ENCOUNTER 2022-10-27 07:33 | Emergency (ER) | payer OTHER, SELFPAY ==
--- NOTE | ~2022-10-27 | CT_ITS ---
EXAMINATION: CT ABDOMEN AND PELVIS WITHOUT CONTRAST CLINICAL INFORMATION: Flank pain. Rule out stone. COMPARISON: Previous CT of the abdomen and pelvis most recent February 2022 TECHNIQUE: Multidetector volumetric imaging was performed from the superior aspect of the liver through the pubic symphysis. Sagittal and coronal reformatted images were obtained on the technologist's workstation. This CT examination was performed using dose optimization techniques as appropriate, variously including the following: *Automated exposure control *Adjustment of mA and/or kV according to patient size (this includes techniques or standardized protocols for targeted exams where dose is matched to indication/reason for exam; i.e. extremities or head) *Use of iterative reconstruction technique DLP: 461 mGy-cm FINDINGS: LUNG BASES: The visualized lung bases are unremarkable. LIVER, GALLBLADDER, AND BILIARY TREE: The liver is normal in size, shape, and attenuation. No focal hepatic lesion or biliary ductal dilatation is present. The gallbladder is unremarkable with no evidence of radiopaque gallstones, gallbladder wall thickening, or obvious pericholecystic inflammatory changes. PANCREAS: Unremarkable. SPLEEN: Unremarkable. ADRENAL GLANDS: Unremarkable. KIDNEYS AND URETERS: There are bilateral renal stones. Largest right renal stone measures 4 mm in the central upper pole. Largest left renal stone measures 3 mm in the midpole. There is mild left hydronephrosis and ureteral dilatation from a 4 mm left proximal ureteral stone. BLADDER: Unremarkable. GASTROINTESTINAL TRACT: The small and large bowel are unremarkable. The appendix is unremarkable. ABDOMINAL WALL: Small umbilical hernia containing fat. LYMPH NODES: Normal. VASCULAR: Unremarkable. PELVIC VISCERA: Unremarkable. OSSEOUS STRUCTURES: Unremarkable. CT/CT abdomen pelvis wo IV con IMPRESSION: Mild left hydronephrosis from a 4 mm left proximal ureteral stone. Small bilateral renal stones Fleischner guidelines were followed.
[2022-10-27 07:35] VITALS: BP 150/97; PULSE 93; RESP 18; TEMP 36.7; O2SAT 100; BMI 25.8
[2022-10-27 07:54] LABS: MANUAL DIFF FLAG NO
[2022-10-27 07:55] LABS: Basophils Percent Auto 0.4 % (0-2); Eosinophils Absolute Auto 0.1 X10*3/uL (0.0-0.4); Hematocrit 40.3 % (37.0-47.0); Hemoglobin 13.1 g/dl (12.0-16.0); Imm Gran Abs Auto 0.01 X10*3/uL (0.00-0.03); Imm Gran Pct Auto 0.2 % (0.0-0.4); Lymphocytes Absolute Auto 1.6 X10*3/uL (1.2-4.9); Lymphocytes Percent Auto 36.2 % (20-40); Mean Corpuscular HGB Conc 32.5 g/dl (31.0-35.0); Mean Corpuscular Hemoglobin 29.2 pg (27.0-33.0); Mean Corpuscular Volume 89.8 fL (80.0-98.0); Mean Platelet Volume 9.6 fL (9.4-12.3); Monocytes Absolute Auto 0.5 X10*3/uL (0.1-1.2); Monocytes Percent Auto 11.4 % (2-11); Neutrophils Absolute Auto 2.2 x10*3/uL (2.0-8.3); Neutrophils Percent Auto 49.8 % (45-73); Platelet Count 205 X10*3/uL (160-400); Red Blood Count 4.49 X10*6/uL (4.20-5.50); Red Cell Distribution Width 13.4 % (11.0-16.0); White Blood Count 4.5 X10*3/uL (4.8-10.8)
[2022-10-27 08:02] VITALS: BP 146/73; PULSE 78; RESP 18; TEMP 36.8; O2SAT 100
[2022-10-27 08:08] LABS: Alanine Aminotransferase 20 U/L (0-31); Albumin Level 4.5 g/dL (3.5-5.0); Alkaline Phosphatase 102 U/L (39-117); Anion Gap 14 (12-20); Aspartate Amino Transferase 19 U/L (5-31); Bilirubin Total 0.7 mg/dL (0.0-1.0); Blood Urea Nitrogen 16 mg/dL (9-16); Calcium 9.8 mg/dL (8.4-10.2); Carbon Dioxide 25 mmol/L (22-29); Chloride 110 mmol/L (96-108); Creatinine Clr Calc Pharmacy 84.6; Estimated Glomerular Filt Rate > 60; Glucose Random 102 mg/dL (60-115); Potassium 4.4 mmol/L (3.3-5.1); Sodium 145 mmol/L (135-145); Total Protein 7.2 g/dL (6.5-8.0)
--- NOTE | 2022-10-27 08:13 | ED.GENADULT ---
HPI - General Adult General Chief complaint: Abdominal Pain Stated complaint: kidney stone pain Time Seen by Provider: 10/27/22 08:09 Source: patient Mode of arrival: ambulatory Limitations: no limitations History of Present Illness HPI narrative: This is a 47-year-old female presenting with complaints of left-sided flank pain that started this morning, constant severe in nature, patient reports this feels like the time she had a kidney stone. Tells me she is extremely uncomfortable. Denies fevers, chills, chest pain, shortness of breath, nausea, vomiting, changes in urination, abdominal pain headache, vision changes, dizziness and weakness. Related Data Home Medications Medication Instructions Recorded Confirmed acetaminophen 500 mg tablet 500 mg PO QID PRN Fever Or Pain 10/27/22 10/27/22 Previous Rx's Medication Instructions Recorded ibuprofen 600 mg tablet 600 mg PO TID PRN pain 14 days #90 09/13/21 tabs ketorolac 10 mg tablet 10 mg PO TID PRN pain 5 days #15 10/27/22 tabs morphine 15 mg immediate release 15 mg PO Q6H PRN pain 5 days #10 10/27/22 tablet tabs prednisone 20 mg tablet 20 mg PO DAILY 5 days #5 tabs 10/27/22 tamsulosin 0.4 mg capsule (Flomax) 0.4 mg PO DAILY #30 caps 10/27/22 Allergies Allergy/AdvReac Type Severity Reaction Status Date / Time corn [CORN] Allergy Unknown SEVERE Verified 01/04/22 16:15 CRAMPING, NAUSEA latex [LATEX] Allergy Unknown RASH Verified 01/04/22 16:15 tramadol [TRAMADOL] AdvReac Unknown VOMITING, Verified 01/04/22 16:15 n/v, vomiting Review of Systems Review of Systems: Constitutional : No Weight loss, No Fever, No Chills, No Fatigue, No Malaise ENT/Mouth : No sore throat, No Rhinorrhea Eyes: No Eye Pain, No Swelling, No Redness Cardiovascular : No Chest Pain, No SOB, No Dyspnea on Exertion, No Orthopnea, No Edema, No Palpitations Respiratory : No Cough, No Sputum, No Wheezing Gastrointestinal : No Nausea, No Vomiting, No Diarrhea, No Constipation, No abdominal Pain, No Hematochezia, No Melena Genitourinary : No Dysuria, No Urinary Frequency, No Hematuria, Musculoskeletal : No joint pain, No Myalgias, No Joint Swelling, + flank pain Skin : No Skin Lesions, No rash Neuro : No Weakness, No Numbness, No Dizziness, No Headache Psych : No Anxiety/Panic, No Depression All other systems reviewed and are negative Yes all other systems are reviewed and are negative COUNTS INCLUDE 234 BEDS AT THE [facility] Past Medical History Attestation statement: The following information was validated with the patient. Source: old records reviewed and nursing notes reviewed Medical History Multiple sclerosis Surgical History Ductal carcinoma in situ of left breast History of hysterectomy History of tubal ligation History of wisdom tooth extraction Infiltrating ductal carcinoma of right breast Family History Family History Maternal Grandmother History of bone cancer Social History Social History Housing: House Alcohol intake: current Alcohol intake frequency: a few times a week Patient Tobacco Use Status: Never used Tobacco Smoked in Last 30 Days: No e-Cigarette/Vaping Use: Never Used Second Hand Smoke Exposure: No Use of substances other than those prescribed or required for medical reasons: No Advance Directives: No service: No Current occupational status: employed Current occupation: [employer] Cognitive needs: No Hearing needs: No Vision needs: Yes (Glasses) Physical Exam ED Vital Signs: Vital Signs - 24 hr 10/27/22 07:35 10/27/22 08:02 10/27/22 08:23 Temperature 98.1 F 98.2 F Pulse Rate 93 78 Respiratory Rate 18 18 18 Blood Pressure 150/97 H 146/73 H Pulse Oximetry 100 100 Oxygen Delivery Method Room Air Room Air 10/27/22 09:21 10/27/22 10:00 10/27/22 10:45 Temperature 98.4 F 97.8 F Pulse Rate 75 70 Respiratory Rate 20 16 18 Blood Pressure 118/65 121/66 Pulse Oximetry 97 100 Oxygen Delivery Method Room Air Room Air BMI result Body Mass Index 25.8 vss Appearance: Alert.? Oriented X3.? No acute distress.? Head: Normocephalic, atraumatic, no step-offs or deformities Eyes: Pupils equal, round and reactive to light.? ENT: Pharynx normal.? Neck: Normal inspection.? Neck supple.? CVS: Normal heart rate and rhythm.? Pulses normal.? Respiratory: No respiratory distress.? Breath sounds normal.? Abdomen: Soft and nontender.?+ left sided flank pain Skin: Skin warm and dry.? Normal skin color.? Normal skin turgor.? Extremities: No lower extremity edema.? No calf ttp. 5/5 strength to bilateral upper and lower extremities Neuro: Oriented X 3.? No motor deficit.? No sensory deficit. CN 2-12 intact Course Reevaluation(s) Reevaluation #1: CBC appears to be around patient's baseline. Chemistry unremarkable. UA without infection, red blood cells are noted. CT of the abdomen and pelvis with mild left hydronephrosis from a left proximal stone, 4 mm. Small bilateral renal stones. Will give pain control, fluids, Flomax and prednisone. I did reach out to Urology who does not feel as though this requires hospital admission. Recommends Dilaudid if needed for pain control through the IV and to discharge patient home with prednisone 20 mg p.o., and have her follow up outpatient. Time: 11:43 Reevaluation #2: Patient states she is feeling much better. Tolerating p.o. Educated patient on diagnosis and treatment plan, answered all question, patient verbalizes understanding. At this time patient will be discharged home, advised to return with new or worsening symptoms. Educated on worrisome signs and symptoms and when to return. At this time I feel comfortable discharge home. Time: 11:45 Medications Administered Discontinued Medications Generic Name Dose Route Start Last Admin Trade Name Sy PRN Reason Stop Dose Admin Fentanyl 50 mcg 10/27/22 09:13 10/27/22 09:21 Fentanyl Citrate/Pf 100 Mcg/2 Ml Vial IVPUSH 10/27/22 09:14 50 mcg ONCE ONE Administration Protocol Sodium Chloride 1,000 mls @ 999 mls/hr 10/27/22 08:15 10/27/22 09:24 Ns IV 10/27/22 09:15 Infused .Q1H1M FATIMAH Infusion Sodium Chloride 1,000 mls @ 999 mls/hr 10/27/22 09:45 10/27/22 10:12 Ns IV 10/27/22 10:45 999 mls/hr .Q1H1M FATIMAH Administration Ketorolac Tromethamine 30 mg 10/27/22 08:40 10/27/22 08:54 Ketorolac Tromethamine 15 Mg/Ml Vial IVPUSH 10/27/22 08:41 30 mg ONCE ONE Administration Morphine Sulfate 4 mg 10/27/22 08:12 10/27/22 08:23 Morphine Sulfate 4 Mg/Ml Cartridge IVPUSH 10/27/22 08:13 4 mg ONCE ONE Administration Protocol Ondansetron HCl 4 mg 10/27/22 08:12 10/27/22 08:21 Ondansetron Hcl 4 Mg/2 Ml Vial IVPUSH 10/27/22 08:13 4 mg ONCE ONE Administration Prednisone 20 mg 10/27/22 10:07 10/27/22 10:24 Prednisone 20 Mg Tablet PO 10/27/22 10:08 20 mg ONCE ONE Administration Tamsulosin HCl 0.4 mg 10/27/22 10:07 10/27/22 10:25 Tamsulosin Hcl 0.4 Mg Capsule PO 10/27/22 10:08 0.4 mg ONCE ONE Administration Medical Decision Making Medical Decision Making MDM Narrative: 47-year-old female presents with sudden onset left-sided flank pain that started this morning, reports severe pain. History of kidney stones. On exam patient appears uncomfortable. Left-sided CVA tenderness. Concerns for kidney stone versus pyelonephritis versus pancreatitis versus diverticulitis. Unlikely acute abdomen, appendicitis, cholecystitis, abdominal aortic aneurysm. Plan labs, urine, imaging. Will give morphine for pain control. Differential Diagnosis Differential Diagnoses: The differential diagnosis associated with the presentation includes Concerns for kidney stone versus pyelonephritis versus pancreatitis versus diverticulitis. Unlikely acute abdomen, appendicitis, cholecystitis, abdominal aortic aneurysm. Admission/Observation Consideration of admission/observation: Escalation of care including admission/observation considered Possible Lab Data 10/27/22 07:50 10/27/22 07:50 Labs: Lab Results 10/27/22 10/27/22 10/27/22 Range/Units 07:50 07:50 09:10 WBC 4.5 L (4.8-10.8) X10*3/uL RBC 4.49 (4.20-5.50) X10*6/uL Hgb 13.1 (12.0-16.0) g/dl Hct 40.3 (37.0-47.0) % MCV 89.8 (80.0-98.0) fL MCH 29.2 (27.0-33.0) pg MCHC 32.5 (31.0-35.0) g/dl RDW 13.4 (11.0-16.0) % Plt Count 205 (160-400) X10*3/uL MPV 9.6 (9.4-12.3) fL Immature Gran % (Auto) 0.2 (0.0-0.4) % Neut % (Auto) 49.8 (45-73) % Lymph % (Auto) 36.2 (20-40) % [place] % (Auto) 11.4 H (2-11) % Eos % (Auto) 2.0 (0-4) % Baso % (Auto) 0.4 (0-2) % Lymph # (Auto) 1.6 (1.2-4.9) X10*3/uL [place] # (Auto) 0.5 (0.1-1.2) X10*3/uL Eos # (Auto) 0.1 (0.0-0.4) X10*3/uL Baso # (Auto) 0.0 (0.0-0.2) X10*3/uL Abs Immat Gran (auto) 0.01 (0.00-0.03) X10*3/uL Absolute Neuts (auto) 2.2 (2.0-8.3) x10*3/uL Absolute Nucleated RBC 0.000 (0.0-0.012) X10*3/uL Nucleated RBC % (auto) 0.0 (0.0-0.2) /100WBC Sodium 145 (135-145) mmol/L Potassium 4.4 (3.3-5.1) mmol/L Chloride 110 H (96-108) mmol/L Carbon Dioxide 25 (22-29) mmol/L Anion Gap 14 (12-20) BUN 16 (9-16) mg/dL Creatinine 0.80 (0.5-1.4) mg/dL Estim Creat Clear Calc 84.6 Estimated GFR > 60 Random Glucose 102 (60-115) mg/dL Calcium 9.8 (8.4-10.2) mg/dL Total Bilirubin 0.7 (0.0-1.0) mg/dL AST 19 (5-31) U/L ALT 20 (0-31) U/L Alkaline Phosphatase 102 (39-117) U/L Total Protein 7.2 (6.5-8.0) g/dL Albumin 4.5 (3.5-5.0) g/dL Urine Color Yellow Urine Appearance Clear Urine pH 7.0 (5.0-9.0) Ur Specific [place] 1.020 (1.005-1.025) Urine Protein Trace (Neg-Trace) mg/dL Urine Glucose (UA) Negative (Negative) mg/dL Urine Ketones Negative (Negative) mg/dL Urine Blood Large (3+) H (Negative) Urine Nitrite Negative (Negative) Ur Leukocyte Esterase Small (1+) H (Negative) Urine RBC >20 H (0-2) /HPF Urine WBC 0-5 (0-5) /HPF Ur Squamous Epith Cells 6-10 (0-2) /HPF Calcium Oxalate Crystal Present Urine Bacteria None Seen (None Seen) Hyaline Casts 0-2 (0-2) /LPF Critical Care Time Critical Care Time Critical Care Time: Yes Total Critical Care Time: 35 Attestation: I attest to this time spent taking care of the patient, obtaining history, physical, reviewing labs, imaging, speaking to my attending, speaking to specialist. Discharge Plan Discharge Clinical Impression: Kidney calculus Patient Disposition: Home, Self-Care Instructions: Kidney Stones (ED) Additional Instructions: Take your medications as prescribed. If you were prescribed antibiotics today, it is important that you take your medication to their entirety, do not skip any doses, do not finish them early. Follow-up with your primary care provider this week. Please follow-up with Urology as soon as possible. Return to the emergency department with new or worsening symptoms. Such as fevers, chills, chest pain, shortness of breath, nausea, vomiting, dizziness, headache, vision changes, lethargy In case of emergency call 911 Toradol has been sent to your pharmacy, you tolerated this well in the department. Please take this as prescribed do not take this with ibuprofen, or other NSAIDs, do not mix this with alcohol. Side effects of this medication including increased risk for bleeding and possible kidney injury. A narcotic has been sent to your pharmacy please take this as prescribed. Do not take more than the prescribed dose. Narcotic medications can cause addiction. Please do not mix them with alcohol. Do not take them while driving or operating machinery. Do not take them with any other narcotics. Do not share them with friends or family. They can cause constipation. Take them only for severe pain. CT/CT abdomen pelvis wo IV con IMPRESSION: Mild left hydronephrosis from a 4 mm left proximal ureteral stone. Small bilateral renal stones ? Fleischner guidelines were followed. Prescriptions: New prednisone 20 mg tablet 20 mg PO DAILY 5 Days Qty: 5 0RF tamsulosin [Flomax] 0.4 mg capsule 0.4 mg PO DAILY Qty: 30 0RF ketorolac 10 mg tablet 10 mg PO TID PRN (Reason: pain) 5 Days Qty: 15 0RF morphine 15 mg tablet 15 mg PO Q6H PRN (Reason: pain) 5 Days Qty: 10 0RF Rx Instructions: Partial Fill upon patient request. No Action acetaminophen 500 mg Tablet 500 mg PO QID PRN (Reason: Fever Or Pain) ibuprofen 600 mg tablet 600 mg PO TID PRN (Reason: pain) 14 Days Qty: 90 0RF Referrals: Rut Johnson MD [Physician] - 2 days Genesis Shepherd MD [Primary Care Provider] - 2 days Stand Alone Forms: Work/School Release
[2022-10-27] MEDS: 0.9 % Sodium Chloride 1,000 ML 999 ML IV ×2 (08:19→10:12)
[2022-10-27] MEDS: ondansetron HCL 4 MG/2 ML VIAL IVPUSH (08:21)
[2022-10-27 08:23] VITALS: RESP 18
[2022-10-27] MEDS: Morphine Sulfate 4 MG/ML CARTRIDGE IVPUSH (08:23)
[2022-10-27] MEDS: Ketorolac Tromethamine 15 MG/ML VIAL 30 MG IVPUSH (08:54)
[2022-10-27 09:21] VITALS: RESP 20
[2022-10-27] MEDS: fentaNYL citrate/PF 100 MCG/2 ML VIAL 50 MCG IVPUSH (09:21)
[2022-10-27 09:23] LABS: Appearance Urine Clear; Color Urine Yellow; Glucose Urine UA Negative (Negative); Leukocyte Esterase Urine Small (1+) (Negative); Nitrite Urine Negative (Negative); UMIC TRIGGER UACC YES; Urine Blood Large (3+) (Negative); Urine Ketones Negative (Negative); Urine Protein Trace mg/dL (Neg-Trace)
[2022-10-27 09:34] LABS: Bacteria Urine None Seen (None Seen); Calcium Oxalate Crystals Urine Present; Hyaline Casts Urine 0-2 /LPF (0-2); RBC Urine >20 /HPF (0-2); UACC Culture Trigger YES; WBC Urine 0-5 /HPF (0-5)
--- NOTE | 2022-10-27 09:47 | PHA.MEDREC ---
Pharmacy Consult ? Medication Reconciliation Pharmacy has completed the medication reconciliation. spoke with patient.
[2022-10-27 10:00] VITALS: BP 118/65; PULSE 75; RESP 16; TEMP 36.9; O2SAT 97
[2022-10-27] MEDS: predniSONE 20 MG TABLET PO (10:24)
[2022-10-27] MEDS: Tamsulosin HCL 0.4 MG CAPSULE PO (10:25)
[2022-10-27 10:45] VITALS: BP 121/66; PULSE 70; RESP 18; TEMP 36.6; O2SAT 100
== END 2022-10-27 11:58 | disposition home or self-care (01) ==
PROVIDERS: Emergency Provider Student in an Organized Health Care Education/Training Program; PCP Internal Medicine
DX: N20.0 Calculus of kidney (principal); Z79.899 Other long term (current) drug therapy
CPT/HCPCS: 36415; 74176; 80053; 81001; 85025; 87086; 96361; 96374; 96375; 99284; J1885; J2270; J2405; J3010